=== PATIENT | female | born 1930 | race Caucasian/White ===

== ENCOUNTER 2016-11-15 06:42 | Inpatient (IN) | payer MEDICARE, MEDICAID ==
[~2016-11-15 06:42] MED LIST: Lactated Ringers 1,000 ML IV SCH; Lidocaine 1%/Sod Bicarbonate in NS 8.4% 1 ML Syringe PRN; Sodium Chloride 0.9% 10 ML Syringe FLUSH PRN
--- NOTE | 2016-11-15 07:55 | PCM.PREANE ---
Preanesthetic Assessment - Anesthesia/Transfusion/Family Hx Anesthesia History: Prior Anesthesia Without Reaction Family History of Anesthesia Reaction: No Transfusion History: Prior Transfusion Without Reaction - Review of Systems General: No Symptoms Pulmonary: No Symptoms Cardiovascular: Dyspnea on Exertion Gastrointestinal: No Symptoms Neurological: No Symptoms Other: Reports: Diabetes - Physical Assessment NPO Status Date: 11/14/16 NPO Status Time: 18:00 Pulse: 73 O2 Sat by Pulse Oximetry: 97 Respiratory Rate: 16 Blood Pressure: 122/56 Temperature: 36.9 C Height: 1.55 m Weight: 58.06 kg ASA Class: 3 Mental Status: Alert & Oriented x3 Airway Class: Mallampati = 1 Dentition: Reports: Dentures Thyro-Mental Finger Breadths: 3 Mouth Opening Finger Breadths: 3 ROM/Head Extension: Full Lungs: Clear to Auscultation, Normal Respiratory Effort Cardiovascular: Regular Rate, Regular Rhythm - Lab Values: Laboratory Last Values POC Glucose 127 mg/dL (83-110) H 11/15/16 07:29 MRSA (PCR) Negative 11/02/16 10:15 Blood Type Cancelled 11/10/16 15:02 Gel Antibody Screen Cancelled 11/10/16 15:02 Crossmatch See Detail 11/10/16 15:02 - Allergies Allergies/Adverse Reactions: Allergies Allergy/AdvReac Type Severity Reaction Status Date / Time glipizide Allergy Cannot Verified 11/12/16 14:01 Remember aspirin AdvReac anemia Verified 11/15/16 07:15 - Anesthesia Plan Pre-Op Medication Ordered: None - Acknowledgements Anesthesia Type Planned: Spinal Pt an Appropriate Candidate for the Planned Anesthesia: Yes Alternatives and Risks of Anesthesia Discussed w Pt/Guardian: Yes Pt/Guardian Understands and Agrees with Anesthesia Plan: Yes PreAnesthesia Questionnaire HEENT History: Reports: Cataract, Impaired Vision, Other (See Below) Other HEENT History: full dentures, glasses Cardiovascular History: Reports: High Cholesterol, Hypertension, SOB on Exertion , Other (See Below) Other Cardiovascular History: leg swelling Other Respiratory History: severe snoring Gastrointestinal History: Reports: Chronic Diarrhea, Colon Polyp, GERD Genitourinary History: Reports: Chronic Renal Insuffiency Other Genitourinary History: decreased GFR IOS 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 Musculoskeletal History: Reports: Osteoarthritis, Other (See Below) Other Musculoskeletal History: left hip pain Neurological History: Reports: None Psychiatric History: Reports: Depression Endocrine/Metabolic History: Reports: Diabetes, Type II, Hypothyroidism Hematologic History: Reports: Anemia, Iron Deficiency Other Hematologic History: hyperkalemia Immunologic History: Reports: None Oncologic (Cancer) History: Reports: None Dermatologic History: Reports: None - Infectious Disease History Infectious Disease History: Reports: Shingles - Past Surgical History Head Surgeries/Procedures: Reports: None HEENT Surgical History: Reports: Cataract Surgery, Other (See Below) Other HEENT Surgeries/Procedures: 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 GI Surgical History: Reports: Colonoscopy, EGD Neurological Surgical History: Reports: None Oncologic Surgical History: Reports: None Dermatological Surgical History: Reports: None - SUBSTANCE USE Smoking Status *Q: Never Smoker Tobacco Use Within Last Twelve Months: No Second Hand Smoke Exposure: No Days Per Week of Alcohol Use: 0 Number of Drinks Per Day: 0 Total Drinks Per Week: 0 Recreational Drug Use History: No - HOME MEDS Home Medications: Home Meds Calcium Carbonate/Vitamin D3 [Calcium 600 + Vit D 400 Softgl] 1 cap PO DAILY [History] Hydrochlorothiazide 25 mg PO DAILY 01/19/16 [History] Levothyroxine 75 mcg PO DAILY 01/19/16 [History] Lisinopril [Prinivil] 5 mg PO DAILY 01/19/16 [History] Omeprazole Magnesium [Prilosec Otc] 20 mg PO DAILY PRN 01/19/16 [History] Pravastatin Sodium [Pravastatin (Pravachol)] 40 mg PO DAILY 01/19/16 [History] metFORMIN [Glucophage] 1,000 mg PO BID 01/19/16 [History] Multivitamin [One Daily] 1 tab PO DAILY 11/12/16 [History] - CURRENT (IN HOUSE) MEDS Current Meds: Current Medications Lactated Ringer's (Ringers, Lactated) 1,000 mls @ 125 mls/hr IV ASDIRECTED RUPERT Stop: 11/15/16 23:00 Lidocaine/Sodium Bicarbonate (Buffered Lidocaine 1% In Ns 8.4%) 0.25 ml .XX ONETIME PRN PRN Reason: Prior to IV Start Stop: 11/15/16 18:00 Sodium Chloride (Saline Flush) 10 ml FLUSH ASDIRECTED PRN PRN Reason: Keep Vein Open Stop: 11/15/16 18:00 Discontinued Medications Bupivacaine HCl (Marcaine 0.25%) Confirm Administered Dose 30 ml .ROUTE .STK- MED ONE Stop: 11/15/16 07:15 Cefazolin Sodium (Ancef) Confirm Administered Dose 2 gm .ROUTE .STK-MED ONE Stop: 11/15/16 07:14 Morphine Sulfate 8 mg/Epinephrine HCl 0.3 mg/Cefuroxime Sodium 750 mg/Ketorolac Tromethamine 30 mg/Sodium Chloride 27.9 ml 0 mg .XX ONETIME ONE Stop: 11/15/16 07:31 Iodine (Iodine 2% Mild Tincture) Confirm Administered Dose 30 ml .ROUTE .STK- MED ONE Stop: 11/15/16 07:15 Tranexamic Acid (Cyklokapron) Confirm Administered Dose 1,000 mg .ROUTE .STK- MED ONE Stop: 11/15/16 07:14
[2016-11-15] MEDS ORDERED: Naloxone 0.4 MG/ML SDV IVPUSH PRN (08:53)
[2016-11-15] MEDS ORDERED: Bisacodyl 5 MG Tab PO PRN (08:53)
[2016-11-15] MEDS ORDERED: Morphine 2 MG/ML Syringe IVPUSH PRN (08:53)
[2016-11-15] MEDS ORDERED: Magnesium Hydroxide 400 MG/5 ML Susp 30 ML Cup PO PRN (08:53)
[2016-11-15] MEDS ORDERED: Ondansetron 4 MG/2 ML SDV IVPUSH PRN ×2 (08:53→10:30)
[2016-11-15] MEDS ORDERED: fentaNYL 100 MCG/2 ML SDV ONE (08:58)
[2016-11-15] MEDS ORDERED: Propofol 200 MG/20 ML SDV ONE (08:58)
[2016-11-15] MEDS ORDERED: Morphine PF 10 MG/10 ML SDV ONE (08:58)
[2016-11-15] MEDS ORDERED: ceFAZolin 1 GM Vial ONE (09:02)
[2016-11-15] MEDS ORDERED: Phenylephrine 1% 10 MG/ML SDV ONE (09:50)
[2016-11-15] MEDS: Bupivacaine 0.25% 30 ML SDV ONE ×2 (09:52→10:36)
[2016-11-15] MEDS: Iodine/Sodium Iodide 2% Tincture 30 ML Bottle ONE ×2 (09:53→10:28)
[2016-11-15] MEDS: Morphine 8 MG, EPINEPHrine 0.3 MG, Cefuroxime 750 MG, Ketorolac 30 MG, Sodium Chloride ... ONE ×10 (09:53→10:35)
[2016-11-15] MEDS: ceFAZolin 1 GM Vial ONE ×2 (09:53→10:30)
[2016-11-15] MEDS ORDERED: ePHEDrine 50 MG/ML SDV ONE (10:15)
[2016-11-15] MEDS ORDERED: Meperidine PF 50 MG/ML Syringe IVPUSH PRN (10:30)
[2016-11-15] MEDS ORDERED: diphenhydrAMINE 50 MG/ML SDV IVPUSH PRN (10:30)
--- NOTE | 2016-11-15 10:34 | PCM.OPNOTE ---
- General Post-Op/Procedure Note Date of Surgery/Procedure: 11/15/16 Operative Procedure(s): left total hip arthroplasty Pre Op Diagnosis: left hip osteoarthrosis Post-Op Diagnosis: Same Anesthesia Technique: Local, MAC, Spinal Primary Surgeon: Irwin Beavers Anesthesia Provider: Dejan Monroy Supervisor [employer]: Khushboo Borges Supervisor [employer] Processing: Alecia Galeana EBZane in mLs: 200 Condition: Good
[2016-11-15] MEDS ORDERED: Lactated Ringers 1,000 ML ONE (11:00)
--- NOTE | 2016-11-15 11:18 | PCM.POSTAN ---
POST ANESTHESIA ASSESSMENT - MENTAL STATUS Mental Status: Alert, Oriented - VITAL SIGNS Pulse Rate: 86 SaO2: 100 Resp Rate: 12 Blood Pressure: 103/58 Temperature: 36.2 C - RESPIRATORY Respiratory Status: Respiratory Rate WNL, Airway Patent, O2 Saturation Stable, Supplemental Oxygen - CARDIOVASCULAR CV Status: Pulse Rate WNL, Blood Pressure Stable - GASTROINTESTINAL GI Status: No Symptoms - PAIN Pain Score: 0 - POST OP HYDRATION Hydration Status: Adequate & Stable
--- NOTE | 2016-11-15 12:38 | CR ---
Pelvis and left hip: AP view of the pelvis was obtained as well as lateral view of the left hip. Comparison: Previous left hip CT exam was 10/02/15 is available. Recently placed left hip prosthesis is seen. Components are aligned. Underlying bony structures are intact. Degenerative change is noted within the lower lumbar spine. Fairly severe joint space narrowing is noted within the right hip. Soft tissue air is noted within the left hip. Bony structures are osteopenic. Impression: 1. Satisfactory appearance of recently placed left hip prosthesis. 2. Degenerative change within the right hip and lumbar spine is noted. Diagnostic code #3
--- NOTE | 2016-11-15 13:06 | PCM.CONS ---
H&P History of Present Illness - General Date of Service: 11/15/16 Admit Problem/Dx: Admission Diagnosis/Problem Admission Diagnosis/Problem Osteoarthritis of hip Source of Information: Patient, Old Records History Limitations: Reports: No Limitations - History of Present Illness Initial Comments - Free Text/Narative: Scarlett is a pleasant 86yo female seen postoperatively for total hip arthroplasty this morning with Dr. Beavers. She is doing well, no nausea or vomiting. Pain is under good control. She has no concerns as of yet. She has PMH of HTN, HLD, chronic diarrhea, GERK, CKD, OA, DM type 2, hypothyroid , anemia (iron deficiency, hx shingles, hx snoring (no formal dx of JIMENEZ). Hospitalist service is consulted for postoperative medical management. Onset of Symptoms: Reports: Gradual Duration of Symptoms: Reports: Chronic, Getting Worse Context: Reports: Activity/Exercise - Related Data Allergies/Adverse Reactions: Allergies Allergy/AdvReac Type Severity Reaction Status Date / Time glipizide Allergy Cannot Verified 11/12/16 14:01 Remember aspirin AdvReac anemia Verified 11/15/16 07:15 Home Medications: Home Meds Calcium Carbonate/Vitamin D3 [Calcium 600 + Vit D 400 Softgl] 1 cap PO DAILY [History] Hydrochlorothiazide 25 mg PO DAILY 01/19/16 [History] Levothyroxine 75 mcg PO DAILY 01/19/16 [History] Lisinopril [Prinivil] 5 mg PO DAILY 01/19/16 [History] Omeprazole Magnesium [Prilosec Otc] 20 mg PO DAILY PRN 01/19/16 [History] Pravastatin Sodium [Pravastatin (Pravachol)] 40 mg PO DAILY 01/19/16 [History] metFORMIN [Glucophage] 1,000 mg PO BID 01/19/16 [History] Multivitamin [One Daily] 1 tab PO DAILY 11/12/16 [History] Past Medical History HEENT History: Reports: Cataract, Impaired Vision, Other (See Below) Other HEENT History: full dentures, glasses Cardiovascular History: Reports: High Cholesterol, Hypertension, SOB on Exertion , Other (See Below) Other Cardiovascular History: leg swelling Other Respiratory History: severe snoring Gastrointestinal History: Reports: Chronic Diarrhea, Colon Polyp, GERD Genitourinary History: Reports: Chronic Renal Insuffiency Other Genitourinary History: decreased GFR 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 Musculoskeletal History: Reports: Osteoarthritis, Other (See Below) Other Musculoskeletal History: left hip pain Neurological History: Reports: None Psychiatric History: Reports: Depression Endocrine/Metabolic History: Reports: Diabetes, Type II, Hypothyroidism Hematologic History: Reports: Anemia, Iron Deficiency Other Hematologic History: hyperkalemia Immunologic History: Reports: None Oncologic (Cancer) History: Reports: None Dermatologic History: Reports: None - Infectious Disease History Infectious Disease History: Reports: Shingles - Past Surgical History Head Surgeries/Procedures: Reports: None HEENT Surgical History: Reports: Cataract Surgery, Other (See Below) Other HEENT Surgeries/Procedures: 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 GI Surgical History: Reports: Colonoscopy, EGD Neurological Surgical History: Reports: None Oncologic Surgical History: Reports: None Dermatological Surgical History: Reports: None Social & Family History - Tobacco Use Smoking Status *Q: Never Smoker Used Tobacco, but Quit: No Second Hand Smoke Exposure: No - Caffeine Use Caffeine Use: Reports: None - Alcohol Use Days Per Week of Alcohol Use: 0 Number of Drinks Per Day: 0 Total Drinks Per Week: 0 - Recreational Drug Use Recreational Drug Use: No H&P Review of Systems - Review of Systems: Review Of Systems: See Below General: Reports: No Symptoms HEENT: Reports: No Symptoms Pulmonary: Reports: No Symptoms. Denies: Shortness of Breath, Pleuritic Chest Pain, Cough Cardiovascular: Reports: No Symptoms. Denies: Chest Pain, Palpitations, Dyspnea on Exertion Gastrointestinal: Reports: No Symptoms. Denies: Abdominal Pain Genitourinary: Reports: No Symptoms, Other (greene cath in place) Musculoskeletal: Reports: No Symptoms, Leg Pain (minimal as spinal still in effect) Psychiatric: Reports: No Symptoms Neurological: Reports: No Symptoms Exam - Exam Exam: See Below - Vital Signs Vital Signs: Last Vital Signs Temp 98.1 F 11/15/16 12:00 Pulse 86 11/15/16 11:18 Resp 18 11/15/16 12:00 BP 125/66 11/15/16 12:00 Pulse Ox 96 11/15/16 12:00 Weight: 128 lb - Exam Quality Assessment: Supplemental Oxygen, Urinary Catheter General: Alert, Oriented, Cooperative HEENT: Conjunctiva Clear, EOMI, Hearing Intact, Mucosa Moist & [place], Pupils Equal, Pupils Reactive Neck: Supple, Trachea Midline Lungs: Clear to Auscultation, Normal Respiratory Effort, Decreased Breath Sounds (bases) Cardiovascular: Regular Rate, Regular Rhythm GI/Abdominal Exam: Normal Bowel Sounds, Soft, Non-Tender, No Organomegaly (Female) Exam: Deferred Rectal (Female) Exam: Deferred Extremities: Normal Capillary Refill, Other (SCD's/teds bilat; dressing CDI to hip) Peripheral Pulses: 2+: Dorsalis Pedis (L), Dorsalis Pedis (R) Skin: Warm, Dry Neurological: Cranial Nerves Intact Neuro Extensive - Mental Status: Alert, Oriented x3, Normal Mood/Affect, Normal Cognition, Memory Intact Neuro Extensive - Motor, Sensory, Reflexes: CN II-XII Intact Psychiatric: Alert, Normal Affect, Normal Mood - Patient Data Lab Results Last 24 hrs: Laboratory Results - last 24 hr 11/15/16 11/15/16 Range/Units 07:29 07:37 POC Glucose 127 H (83-110) mg/dL Blood Type O POSITIVE Gel Antibody Screen Negative Consult PN Assessment/Plan POD#: 0 Procedures: Procedures 3D RENDER W/INTRP POSTPROCES (10/02/15) BLOOD TRANSFUSION SERVICE (11/10/16) BLOOD TYPING SEROLOGIC ABO (11/10/16) BLOOD TYPING SEROLOGIC RH(D) (11/10/16) COLONOSCOPY AND BIOPSY (01/19/16) COLONOSCOPY W/LESION REMOVAL (02/03/16) COLONOSCOPY W/RESECTION (02/03/16) COMPATIBILITY TEST ANTIGLOB (11/10/16) CT LOWER EXTREMITY W/O DYE (10/02/15) EGD BIOPSY SINGLE/MULTIPLE (01/19/16) RBC ANTIBODY SCREEN (11/10/16) ROUTINE VENIPUNCTURE (11/10/16) THER/PROPH/DIAG INJ IV PUSH (11/10/16) TISSUE EXAM BY PATHOLOGIST (02/03/16) (1) S/P total hip arthroplasty SNOMED Code(s): 867983070361, 906658270056 Code(s): Z96.649 - PRESENCE OF UNSPECIFIED ARTIFICIAL HIP JOINT Priority: High Current Visit: Yes Qualifiers: Laterality: left Qualified Code(s): Z96.642 - Presence of left artificial hip joint (2) Osteoarthritis SNOMED Code(s): 558270056 Code(s): M19.90 - UNSPECIFIED OSTEOARTHRITIS, UNSPECIFIED SITE Priority: High Current Visit: Yes Qualifiers: Osteoarthritis location: hip Osteoarthritis type: primary Laterality: left Qualified Code(s): M16.12 - Unilateral primary osteoarthritis, left hip (3) Type 2 diabetes mellitus SNOMED Code(s): 88664648 Code(s): E11.9 - TYPE 2 DIABETES MELLITUS WITHOUT COMPLICATIONS Priority: Medium Current Visit: Yes Qualifiers: Diabetes mellitus complication status: without complication Diabetes mellitus residential insulin use: without termite control service representative use Qualified Code(s): E11.9 - Type 2 diabetes mellitus without complications (4) HTN (hypertension) SNOMED Code(s): 97513888 Code(s): I10 - ESSENTIAL (PRIMARY) HYPERTENSION Priority: Medium Current Visit: No Qualifiers: Hypertension type: essential hypertension Qualified Code(s): I10 - Essential (primary) hypertension (5) HLD (hyperlipidemia) SNOMED Code(s): 43496697 Code(s): E78.5 - HYPERLIPIDEMIA, UNSPECIFIED Priority: Medium Current Visit: No Qualifiers: Hyperlipidemia type: unspecified Qualified Code(s): E78.5 - Hyperlipidemia , unspecified (6) Hypothyroid SNOMED Code(s): 84915061 Code(s): E03.9 - HYPOTHYROIDISM, UNSPECIFIED Priority: Medium Current Visit: No Qualifiers: Hypothyroidism type: unspecified Qualified Code(s): E03.9 - Hypothyroidism , unspecified (7) Anemia SNOMED Code(s): 179829929 Code(s): D64.9 - ANEMIA, UNSPECIFIED Priority: Medium Current Visit: No Qualifiers: Anemia type: iron deficiency (8) GERD (gastroesophageal reflux disease) SNOMED Code(s): 403528310 Code(s): K21.9 - GASTRO-ESOPHAGEAL REFLUX DISEASE WITHOUT ESOPHAGITIS Priority: Medium Current Visit: No Qualifiers: Esophagitis presence: esophagitis presence not specified Qualified Code(s) : K21.9 - Gastro-esophageal reflux disease without esophagitis (9) CKD (chronic kidney disease) SNOMED Code(s): 587189255 Code(s): N18.9 - CHRONIC KIDNEY DISEASE, UNSPECIFIED Priority: Medium Current Visit: No Qualifiers: Chronic kidney disease stage: unspecified stage Qualified Code(s): N18.9 - Chronic kidney disease, unspecified Problem List Initiated/Reviewed/Updated: Yes My Orders Last 24 Hours: My Active Orders 11/16/16 09:00 Hydrochlorothiazide 25 mg PO DAILY Levothyroxine 75 mcg PO DAILY Lisinopril [Prinivil] 5 mg PO DAILY Pravastatin Sodium 40 mg PO DAILY metFORMIN [Glucophage] 1,000 mg PO BID Plan: I/P: S/P Lt DUSTY d/t Osteoarthritis -POD #[address] Beavers -Pain management and DVT prophylax per primary team -PT/OT -RT/IS -10.6 preop hgb (chart review, last reading I was able to find was on 08/17/16 , Hematology documents hgb ranging 9.9-9.3 in the last year) Chronic conditions:- cont home meds HTN- stable HLD CKD- stage 3, stable Hypothyroidism- TSH normal on 04/24/16 at 3.20 DM 2- cont metformin, start tomorrow am; SSI to cover during hospital stay also ; A1C of 7.6 on 04/23/16 per PCP chart review/records review GERD- GI prophylax Anemia- as above, will follow hgb--chart review shows adequate workup by PCP on 08/17/16 documentation, referred to hematology at that time also. Other: CM/SW for assist with DC planning Patient is Full Code Status Thank you for allowing us to assist you with management of this patient. Please do not hesitate to contact us with questions or concerns.
[2016-11-15] MEDS: ceFAZolin 2 GM in Premix Bag 1 BAG IV SCH (15:28)
[2016-11-15] MEDS: Insulin Aspart 100 Units/ML 3 ML Pen SUBCUT SCH ×3 (16:14→21:57)
[2016-11-15] MEDS: Docusate Sodium 100 MG Cap PO SCH (20:54)
[2016-11-15] MEDS: Acetaminophen/HYDROcodone 325-5 MG Tab PO PRN (20:55)
[2016-11-15] MEDS: Simvastatin 20 MG Tab PO SCH (20:55)
[2016-11-15] MEDS ORDERED: Famotidine 20 MG Tab PO SCH (21:00)
[2016-11-16] MEDS: ceFAZolin 2 GM in Premix Bag 1 BAG IV SCH ×2 (02:19→10:40)
[2016-11-16] MEDS: Acetaminophen/HYDROcodone 325-5 MG Tab PO PRN ×4 (02:19→15:28)
[2016-11-16] MEDS: Levothyroxine 75 MCG Tab PO SCH (06:13)
[2016-11-16] MEDS: Multivitamins,Therapeutic Tab PO SCH (07:52)
[2016-11-16] MEDS: Insulin Aspart 100 Units/ML 3 ML Pen SUBCUT SCH ×4 (07:52→21:56)
[2016-11-16] MEDS: metFORMIN 500 MG Tab PO SCH ×2 (07:52→16:42)
--- NOTE | 2016-11-16 08:37 | PCM48HPAN ---
Post Anesthesia Note - EVALUATION WITHIN 48HRS OF ANESTHETIC Vital Signs in Normal Range: Yes Patient Participated in Evaluation: Yes Respiratory Function Stable: Yes Airway Patent: Yes Cardiovascular Function Stable: Yes Hydration Status Stable: Yes Pain Control Satisfactory: Yes Nausea and Vomiting Control Satisfactory: Yes Mental Status Recovered: Yes - COMMENTS/OBSERVATIONS Free Text/Narrative:: Patient denied any headache, residual numbness/tingling to lower extremities, or back pain.
[2016-11-16] MEDS: Famotidine 20 MG Tab PO SCH (10:10)
[2016-11-16] MEDS: Lisinopril 5 MG Tab PO SCH (10:10)
[2016-11-16] MEDS: Hydrochlorothiazide 25 MG Tab PO SCH (10:11)
[2016-11-16] MEDS: Aspirin 325 MG Tab.EC PO SCH ×2 (10:11→20:10)
[2016-11-16] MEDS: Docusate Sodium 100 MG Cap PO SCH ×2 (10:11→20:11)
--- NOTE | 2016-11-16 11:05 | PCM.CONSN ---
- General Info Date of Service: 11/16/16 Admission Dx/Problem (Free Text): Admission Diagnosis/Problem Admission Diagnosis/Problem Osteoarthritis of hip POD #[address] Beavers, doing well. Denies c/o pain to her hip today. Sitting up in chair resting. Denies nausea, resolved from yesterday afternoon. VSS. Hgb 10.7 Plans for Rehab stay at [facility]. Functional Status: Reports: Pain Controlled, Tolerating Diet, Ambulating, Urinating, Incentive Spirometry. Denies: New Symptoms - Review of Systems General: Reports: No Symptoms HEENT: Reports: No Symptoms Pulmonary: Reports: No Symptoms Cardiovascular: Reports: No Symptoms Gastrointestinal: Reports: No Symptoms Genitourinary: Reports: No Symptoms Musculoskeletal: Reports: Leg Pain (minimal to hip) Skin: Reports: No Symptoms Neurological: Reports: No Symptoms Psychiatric: Reports: No Symptoms - Patient Data Vitals - Most Recent: Last Vital Signs Temp 97.5 F 11/16/16 07:28 Pulse 85 11/16/16 07:28 Resp 14 11/16/16 07:28 BP 106/58 L 11/16/16 10:10 Pulse Ox 99 11/16/16 07:28 Weight - Most Recent: 132 lb 6.4 oz I&O - Last 24 Hours: Intake & Output 11/15/16 11/16/16 11/16/16 22:59 06:59 14:59 Intake Total 1730 450 Output Total 1800 700 Balance -70 -250 Lab Results Last 24 Hours: Laboratory Results - last 24 hr 11/15/16 11/15/16 11/15/16 Range/Units 16:03 16:13 21:30 WBC (3.98-10.04) K/mm3 RBC (3.98-5.22) M/mm3 Hgb (11.2-15.7) gm/L Hct (34.1-44.9) % MCV (79.4-94.8) fl MCH (25.6-32.2) pg MCHC (32.2-35.5) g/dl RDW Std Deviation (36.4-46.3) fL Plt Count (182-369) K/mm3 MPV (9.4-12.3) fl Neut % (Auto) (34.0-71.1) % Lymph % (Auto) (19.3-51.7) % Branch % (Auto) (4.7-12.5) % Eos % (Auto) (0.7-5.8) Baso % (Auto) (0.1-1.2) % Neut # (Auto) (1.56-6.13) K/mm3 Lymph # (Auto) (1.18-3.74) K/mm3 Branch # (Auto) (0.24-0.36) K/mm3 Eos # (Auto) (0.04-0.36) K/mm3 Baso # (Auto) (0.01-0.08) K/mm3 Sodium (136-145) mEq/L Potassium (3.5-5.1) mEq/L Chloride (98-107) mEq/L Carbon Dioxide (21-32) mEq/L Anion Gap (5-15) BUN (7-18) mg/dL Creatinine (0.55-1.02) mg/dL Est Cr Clr Drug Dosing mL/min Estimated GFR (MDRD) (>60) mL/min BUN/Creatinine Ratio (14-18) Glucose (83-115) mg/dL POC Glucose 132 H 135 H 252 H (83-110) mg/dL Calcium (8.5-10.1) mg/dL Total Bilirubin (0.2-1.0) mg/dL AST (15-37) U/L ALT (14-59) U/L Alkaline Phosphatase (46-116) U/L Total Protein (6.4-8.2) g/dl Albumin (3.4-5.0) g/dl Globulin gm/dL Albumin/Globulin Ratio (1-2) 11/15/16 11/16/16 11/16/16 Range/Units 21:55 05:40 05:40 WBC 8.60 (3.98-10.04) K/mm3 RBC 3.51 L (3.98-5.22) M/mm3 Hgb 10.7 L (11.2-15.7) gm/L Hct 32.6 L (34.1-44.9) % MCV 92.9 (79.4-94.8) fl MCH 30.5 (25.6-32.2) pg MCHC 32.8 (32.2-35.5) g/dl RDW Std Deviation 42.0 (36.4-46.3) fL Plt Count 255 (182-369) K/mm3 MPV 9.3 L (9.4-12.3) fl Neut % (Auto) 71.7 H (34.0-71.1) % Lymph % (Auto) 19.5 (19.3-51.7) % Branch % (Auto) 7.7 (4.7-12.5) % Eos % (Auto) 0.8 (0.7-5.8) Baso % (Auto) 0.2 (0.1-1.2) % Neut # (Auto) 6.16 H (1.56-6.13) K/mm3 Lymph # (Auto) 1.68 (1.18-3.74) K/mm3 Branch # (Auto) 0.66 H (0.24-0.36) K/mm3 Eos # (Auto) 0.07 (0.04-0.36) K/mm3 Baso # (Auto) 0.02 (0.01-0.08) K/mm3 Sodium 140 (136-145) mEq/L Potassium 4.8 (3.5-5.1) mEq/L Chloride 106 (98-107) mEq/L Carbon Dioxide 29 (21-32) mEq/L Anion Gap 9.8 (5-15) BUN 41 H (7-18) mg/dL Creatinine 1.6 H (0.55-1.02) mg/dL Est Cr Clr Drug Dosing 19.75 mL/min Estimated GFR (MDRD) 31 (>60) mL/min BUN/Creatinine Ratio 25.6 H (14-18) Glucose 174 H (83-115) mg/dL POC Glucose 262 H (83-110) mg/dL Calcium 8.5 (8.5-10.1) mg/dL Total Bilirubin 0.4 (0.2-1.0) mg/dL AST 24 (15-37) U/L ALT 18 (14-59) U/L Alkaline Phosphatase 57 (46-116) U/L Total Protein 5.5 L (6.4-8.2) g/dl Albumin 2.9 L (3.4-5.0) g/dl Globulin 2.6 gm/dL Albumin/Globulin Ratio 1.1 (1-2) 11/16/16 Range/Units 05:41 WBC (3.98-10.04) K/mm3 RBC (3.98-5.22) M/mm3 Hgb (11.2-15.7) gm/L Hct (34.1-44.9) % MCV (79.4-94.8) fl MCH (25.6-32.2) pg MCHC (32.2-35.5) g/dl RDW Std Deviation (36.4-46.3) fL Plt Count (182-369) K/mm3 MPV (9.4-12.3) fl Neut % (Auto) (34.0-71.1) % Lymph % (Auto) (19.3-51.7) % Branch % (Auto) (4.7-12.5) % Eos % (Auto) (0.7-5.8) Baso % (Auto) (0.1-1.2) % Neut # (Auto) (1.56-6.13) K/mm3 Lymph # (Auto) (1.18-3.74) K/mm3 Branch # (Auto) (0.24-0.36) K/mm3 Eos # (Auto) (0.04-0.36) K/mm3 Baso # (Auto) (0.01-0.08) K/mm3 Sodium (136-145) mEq/L Potassium (3.5-5.1) mEq/L Chloride (98-107) mEq/L Carbon Dioxide (21-32) mEq/L Anion Gap (5-15) BUN (7-18) mg/dL Creatinine (0.55-1.02) mg/dL Est Cr Clr Drug Dosing mL/min Estimated GFR (MDRD) (>60) mL/min BUN/Creatinine Ratio (14-18) Glucose (83-115) mg/dL POC Glucose 162 H (83-110) mg/dL Calcium (8.5-10.1) mg/dL Total Bilirubin (0.2-1.0) mg/dL AST (15-37) U/L ALT (14-59) U/L Alkaline Phosphatase (46-116) U/L Total Protein (6.4-8.2) g/dl Albumin (3.4-5.0) g/dl Globulin gm/dL Albumin/Globulin Ratio (1-2) Med Orders - Current: Current Medications Hydrocodone Bitart/Acetaminophen ([place] 325-5 Mg) 1 - 2 tab PO Q4H PRN PRN Reason: Pain Last Admin: 11/16/16 10:51 Dose: 2 tab Aspirin (Ecotrin) 325 mg PO BID [facility] Last Admin: 11/16/16 10:11 Dose: 325 mg Bisacodyl (Dulcolax) 5 mg PO DAILY PRN PRN Reason: Constipation Docusate Sodium (Colace) 100 mg PO BID [facility] Last Admin: 11/16/16 10:11 Dose: 100 mg Famotidine (Pepcid) 20 mg PO DAILY [facility] Last Admin: 11/16/16 10:10 Dose: 20 mg Hydrochlorothiazide (Hydrochlorothiazide) 25 mg PO DAILY [facility] Last Admin: 11/16/16 10:11 Dose: 25 mg Insulin Aspart (Novolog) 0 unit SUBCUT QIDACANDBED [facility] PRN Reason: Protocol Last Admin: 11/16/16 07:52 Dose: 1 units Levothyroxine Sodium (Levothyroxine) 75 mcg PO ACBREAKFAST [facility] Last Admin: 11/16/16 06:13 Dose: 75 mcg Lisinopril (Prinivil) 5 mg PO DAILY [facility] Last Admin: 11/16/16 10:10 Dose: 5 mg Magnesium Hydroxide (Milk Of Magnesia) 30 ml PO BID PRN PRN Reason: Constipation Metformin HCl (Glucophage) 1,000 mg PO BIDMEALS [facility] Last Admin: 11/16/16 07:52 Dose: 1,000 mg Morphine Sulfate (Morphine) 2 mg IVPUSH Q2H PRN PRN Reason: Breakthrough Pain Multivitamins (Thera) 1 each PO WITHBREAKFAST [facility] Last Admin: 11/16/16 07:52 Dose: 1 each Naloxone HCl (Narcan) 0.1 mg IVPUSH Q5M PRN PRN Reason: Oversedation Ondansetron HCl (Zofran) 4 mg IVPUSH Q6H PRN PRN Reason: Nausea/Vomiting Last Admin: 11/15/16 16:55 Dose: 4 mg Senna (Senna) 8.6 mg PO BID PRN PRN Reason: Constipation Simvastatin (Zocor) 20 mg PO BEDTIME [facility] Last Admin: 11/15/16 20:55 Dose: 20 mg Discontinued Medications Bupivacaine HCl (Marcaine 0.25%) Confirm Administered Dose 30 ml .ROUTE .STK- MED ONE Stop: 11/15/16 07:15 Last Admin: 11/15/16 10:36 Dose: 30 ml Cefazolin Sodium (Ancef) Confirm Administered Dose 2 gm .ROUTE .STK-MED ONE Stop: 11/15/16 07:14 Last Admin: 11/15/16 10:30 Dose: 2 gm Cefazolin Sodium (Ancef) Confirm Administered Dose 2 gm .ROUTE .STK-MED ONE Stop: 11/15/16 09:03 Morphine Sulfate 8 mg/Epinephrine HCl 0.3 mg/Cefuroxime Sodium 750 mg/Ketorolac Tromethamine 30 mg/Sodium Chloride 27.9 ml 0 mg .XX ONETIME ONE Stop: 11/15/16 07:31 Last Admin: 11/15/16 10:35 Dose: 788.3 mg Diphenhydramine HCl (Benadryl) 25 mg IVPUSH Q6H PRN PRN Reason: Pruritis Stop: 11/15/16 18:00 Ephedrine Sulfate (Ephedrine Sulfate) Confirm Administered Dose 50 mg .ROUTE .STK-MED ONE Stop: 11/15/16 10:16 Famotidine (Pepcid) 20 mg PO Q12H [facility] Last Admin: 11/15/16 20:55 Dose: 20 mg Fentanyl (Sublimaze) Confirm Administered Dose 100 mcg .ROUTE .STK-MED ONE Stop: 11/15/16 08:59 Lactated Ringer's (Ringers, Lactated) 1,000 mls @ 125 mls/hr IV ASDIRECTED [facility] Stop: 11/15/16 23:00 Last Admin: 11/15/16 07:30 Dose: 125 mls/hr Cefazolin Sodium/Dextrose 2 gm (/ Premix) 50 mls @ 100 mls/hr IV Q8H [facility] Stop: 11/16/16 08:29 Last Admin: 11/16/16 10:40 Dose: 100 mls/hr Lactated Ringer's (Ringers, Lactated) Confirm Administered Dose 1,000 mls @ as directed .ROUTE .STK-MED ONE Stop: 11/15/16 11:01 Iodine (Iodine 2% Mild Tincture) Confirm Administered Dose 30 ml .ROUTE .STK- MED ONE Stop: 11/15/16 07:15 Last Admin: 11/15/16 10:28 Dose: 18 ml Lidocaine/Sodium Bicarbonate (Buffered Lidocaine 1% In Ns 8.4%) 0.25 ml .XX ONETIME PRN PRN Reason: Prior to IV Start Stop: 11/15/16 18:00 Last Admin: 11/15/16 07:30 Dose: 0.25 ml Meperidine HCl (Demerol) 12.5 mg IVPUSH ONETIME PRN PRN Reason: Shivering Stop: 11/15/16 18:00 Morphine Sulfate (Duramorph Pf) Confirm Administered Dose 10 mg .ROUTE .STK-MED ONE Stop: 11/15/16 08:59 Ondansetron HCl (Zofran) 4 mg IVPUSH ONETIME PRN PRN Reason: Nausea/Vomiting Stop: 11/15/16 18:00 Last Admin: 11/15/16 11:36 Dose: 4 mg Phenylephrine HCl (Enrike-Synephrine) Confirm Administered Dose 10 mg .ROUTE .STK- MED ONE Stop: 11/15/16 09:51 Propofol (Diprivan 20 Ml) Confirm Administered Dose 600 mg .ROUTE .STK-MED ONE Stop: 11/15/16 08:59 Sodium Chloride (Saline Flush) 10 ml FLUSH ASDIRECTED PRN PRN Reason: Keep Vein Open Stop: 11/15/16 18:00 Tranexamic Acid (Cyklokapron) Confirm Administered Dose 1,000 mg .ROUTE .STK- MED ONE Stop: 11/15/16 07:14 Last Admin: 11/15/16 10:45 Dose: 1,000 mg - Exam Quality Assessment: DVT Prophylaxis General: Alert, Oriented, Cooperative, No Acute Distress, Other (pleasant, talkative this morning) HEENT: Pupils Equal, EOMI, Mucous Membr. Moist/[place] Neck: Supple Lungs: Clear to Auscultation, Normal Respiratory Effort Cardiovascular: Regular Rate, Regular Rhythm GI/Abdominal Exam: Normal Bowel Sounds, Soft, Non-Tender, No Organomegaly (Female) Exam: Deferred Extremities: Other (Dressing CDI, hip is soft. CMS is + distally) Peripheral Pulses: 1+: Dorsalis Pedis (L), Dorsalis Pedis (R) Wound/Incisions: Dressing Dry and Intact Neurological: No New Focal Deficit Psy/Mental Status: Alert, Normal Affect, Normal Mood Consult PN Assessment/Plan POD#: 1 Procedures: Procedures 3D RENDER W/INTRP POSTPROCES (10/02/15) BLOOD TRANSFUSION SERVICE (11/10/16) BLOOD TYPING SEROLOGIC ABO (11/10/16) BLOOD TYPING SEROLOGIC RH(D) (11/10/16) COLONOSCOPY AND BIOPSY (01/19/16) COLONOSCOPY W/LESION REMOVAL (02/03/16) COLONOSCOPY W/RESECTION (02/03/16) COMPATIBILITY TEST ANTIGLOB (11/10/16) CT LOWER EXTREMITY W/O DYE (10/02/15) EGD BIOPSY SINGLE/MULTIPLE (01/19/16) RBC ANTIBODY SCREEN (11/10/16) ROUTINE VENIPUNCTURE (11/10/16) THER/PROPH/DIAG INJ IV PUSH (11/10/16) TISSUE EXAM BY PATHOLOGIST (02/03/16) (1) S/P total hip arthroplasty SNOMED Code(s): 132675605672, 009005701403 Code(s): Z96.649 - PRESENCE OF UNSPECIFIED ARTIFICIAL HIP JOINT Priority: High Current Visit: Yes Qualifiers: Laterality: left Qualified Code(s): Z96.642 - Presence of left artificial hip joint (2) Osteoarthritis SNOMED Code(s): 109418332 Code(s): M19.90 - UNSPECIFIED OSTEOARTHRITIS, UNSPECIFIED SITE Priority: High Current Visit: Yes Qualifiers: Osteoarthritis location: hip Osteoarthritis type: primary Laterality: left Qualified Code(s): M16.12 - Unilateral primary osteoarthritis, left hip (3) Type 2 diabetes mellitus SNOMED Code(s): 70778085 Code(s): E11.9 - TYPE 2 DIABETES MELLITUS WITHOUT COMPLICATIONS Priority: Medium Current Visit: Yes Qualifiers: Diabetes mellitus complication status: without complication Diabetes mellitus terminal worker insulin use: without terminal worker use Qualified Code(s): E11.9 - Type 2 diabetes mellitus without complications (4) HTN (hypertension) SNOMED Code(s): 13305319 Code(s): I10 - ESSENTIAL (PRIMARY) HYPERTENSION Priority: Medium Current Visit: No Qualifiers: Hypertension type: essential hypertension Qualified Code(s): I10 - Essential (primary) hypertension (5) HLD (hyperlipidemia) SNOMED Code(s): 60047236 Code(s): E78.5 - HYPERLIPIDEMIA, UNSPECIFIED Priority: Medium Current Visit: No Qualifiers: Hyperlipidemia type: unspecified Qualified Code(s): E78.5 - Hyperlipidemia , unspecified (6) Hypothyroid SNOMED Code(s): 24943607 Code(s): E03.9 - HYPOTHYROIDISM, UNSPECIFIED Priority: Medium Current Visit: No Qualifiers: Hypothyroidism type: unspecified Qualified Code(s): E03.9 - Hypothyroidism , unspecified (7) Anemia SNOMED Code(s): 832365821 Code(s): D64.9 - ANEMIA, UNSPECIFIED Priority: Medium Current Visit: No Qualifiers: Anemia type: iron deficiency (8) GERD (gastroesophageal reflux disease) SNOMED Code(s): 975568369 Code(s): K21.9 - GASTRO-ESOPHAGEAL REFLUX DISEASE WITHOUT ESOPHAGITIS Priority: Medium Current Visit: No Qualifiers: Esophagitis presence: esophagitis presence not specified Qualified Code(s) : K21.9 - Gastro-esophageal reflux disease without esophagitis (9) CKD (chronic kidney disease) SNOMED Code(s): 784835472 Code(s): N18.9 - CHRONIC KIDNEY DISEASE, UNSPECIFIED Priority: Medium Current Visit: No Qualifiers: Chronic kidney disease stage: unspecified stage Qualified Code(s): N18.9 - Chronic kidney disease, unspecified Problem List Initiated/Reviewed/Updated: Yes My Orders Last 24 Hours: My Active Orders 11/15/16 13:22 Accu Check [Blood Glucose Check, Bedside] [RC] QIDACANDBED 11/15/16 13:30 Insulin Aspart [NovoLOG] See Protocol SUBCUT QIDACANDBED 11/15/16 21:00 Simvastatin [Zocor] 20 mg PO BEDTIME 11/16/16 06:00 Levothyroxine 75 mcg PO ACBREAKFAST 11/16/16 07:00 metFORMIN [Glucophage] 1,000 mg PO BIDMEALS 11/16/16 09:00 Hydrochlorothiazide 25 mg PO DAILY Lisinopril [Prinivil] 5 mg PO DAILY 11/16/16 10:56 Blood Glucose Check, Bedside [RC] QIDACANDBED 11/16/16 Lunch Consistent Carbohydrate Diet [DIET] 11/17/16 05:11 BASIC METABOLIC PANEL,BMP [CHEM] AM CBC WITH AUTO DIFF [HEME] AM 11/18/16 05:11 BASIC METABOLIC PANEL,BMP [CHEM] AM CBC WITH AUTO DIFF [HEME] AM Plan: I/P: S/P Lt DUSTY d/t Osteoarthritis -POD #[address] Beavers -Pain management and DVT prophylax per primary team -PT/OT -RT/IS -10.6 preop hgb (chart review, last reading I was able to find was on 08/17/16 , Hematology documents hgb ranging 9.9-9.3 in the last year) -today 10.7 Chronic conditions:- cont home meds HTN- stable HLD CKD- stage 3, stable--creat 1.6 today Hypothyroidism- TSH normal on 04/24/16 at 3.20 DM 2- cont metformin, start tomorrow am; SSI to cover during hospital stay also ; A1C of 7.6 on 04/23/16 per PCP chart review/records review GERD- GI prophylax Anemia- as above, will follow hgb--chart review shows adequate workup by PCP on 08/17/16 documentation, referred to hematology at that time also. Other: CM/SW for assist with DC planning--Patient and care team planning for SNF rehab stay, plan for DC of this week to [facility]. Patient is doing well thus far. Patient is Full Code Status
--- NOTE | 2016-11-16 15:14 | PCM.SURGPN ---
- General Info Date of Service: 11/16/16 POD#: 1 Functional Status: Reports: Pain Controlled, Tolerating Diet, Ambulating, Urinating, Other (The pt reports the pain medication causes fatigue, but she is "otherwise well".) - Patient Data Vitals - Most Recent: Last Vital Signs Temp 97.5 F 11/16/16 11:56 Pulse 78 11/16/16 11:56 Resp 12 11/16/16 11:56 BP 108/47 L 11/16/16 11:56 Pulse Ox 96 11/16/16 11:56 Weight - Most Recent: 132 lb 6.4 oz I&O - Last 24 Hours: Intake & Output 11/16/16 11/16/16 11/16/16 06:59 14:59 22:59 Intake Total 450 720 Output Total 700 Balance -250 720 Lab Results Last 24 Hrs: Laboratory Results - last 24 hr 11/15/16 11/15/16 11/15/16 Range/Units 16:03 16:13 21:30 WBC (3.98-10.04) K/mm3 RBC (3.98-5.22) M/mm3 Hgb (11.2-15.7) gm/L Hct (34.1-44.9) % MCV (79.4-94.8) fl MCH (25.6-32.2) pg MCHC (32.2-35.5) g/dl RDW Std Deviation (36.4-46.3) fL Plt Count (182-369) K/mm3 MPV (9.4-12.3) fl Neut % (Auto) (34.0-71.1) % Lymph % (Auto) (19.3-51.7) % [place] % (Auto) (4.7-12.5) % Eos % (Auto) (0.7-5.8) Baso % (Auto) (0.1-1.2) % Neut # (Auto) (1.56-6.13) K/mm3 Lymph # (Auto) (1.18-3.74) K/mm3 Fre[place] # (Auto) (0.24-0.36) K/mm3 Eos # (Auto) (0.04-0.36) K/mm3 Baso # (Auto) (0.01-0.08) K/mm3 Sodium (136-145) mEq/L Potassium (3.5-5.1) mEq/L Chloride (98-107) mEq/L Carbon Dioxide (21-32) mEq/L Anion Gap (5-15) BUN (7-18) mg/dL Creatinine (0.55-1.02) mg/dL Est Cr Clr Drug Dosing mL/min Estimated GFR (MDRD) (>60) mL/min BUN/Creatinine Ratio (14-18) Glucose (83-115) mg/dL POC Glucose 132 H 135 H 252 H (83-110) mg/dL Calcium (8.5-10.1) mg/dL Total Bilirubin (0.2-1.0) mg/dL AST (15-37) U/L ALT (14-59) U/L Alkaline Phosphatase (46-116) U/L Total Protein (6.4-8.2) g/dl Albumin (3.4-5.0) g/dl Globulin gm/dL Albumin/Globulin Ratio (1-2) 11/15/16 11/16/16 11/16/16 Range/Units 21:55 05:40 05:40 WBC 8.60 (3.98-10.04) K/mm3 RBC 3.51 L (3.98-5.22) M/mm3 Hgb 10.7 L (11.2-15.7) gm/L Hct 32.6 L (34.1-44.9) % MCV 92.9 (79.4-94.8) fl MCH 30.5 (25.6-32.2) pg MCHC 32.8 (32.2-35.5) g/dl RDW Std Deviation 42.0 (36.4-46.3) fL Plt Count 255 (182-369) K/mm3 MPV 9.3 L (9.4-12.3) fl Neut % (Auto) 71.7 H (34.0-71.1) % Lymph % (Auto) 19.5 (19.3-51.7) % [place] % (Auto) 7.7 (4.7-12.5) % Eos % (Auto) 0.8 (0.7-5.8) Baso % (Auto) 0.2 (0.1-1.2) % Neut # (Auto) 6.16 H (1.56-6.13) K/mm3 Lymph # (Auto) 1.68 (1.18-3.74) K/mm3 Fre[place] # (Auto) 0.66 H (0.24-0.36) K/mm3 Eos # (Auto) 0.07 (0.04-0.36) K/mm3 Baso # (Auto) 0.02 (0.01-0.08) K/mm3 Sodium 140 (136-145) mEq/L Potassium 4.8 (3.5-5.1) mEq/L Chloride 106 (98-107) mEq/L Carbon Dioxide 29 (21-32) mEq/L Anion Gap 9.8 (5-15) BUN 41 H (7-18) mg/dL Creatinine 1.6 H (0.55-1.02) mg/dL Est Cr Clr Drug Dosing 19.75 mL/min Estimated GFR (MDRD) 31 (>60) mL/min BUN/Creatinine Ratio 25.6 H (14-18) Glucose 174 H (83-115) mg/dL POC Glucose 262 H (83-110) mg/dL Calcium 8.5 (8.5-10.1) mg/dL Total Bilirubin 0.4 (0.2-1.0) mg/dL AST 24 (15-37) U/L ALT 18 (14-59) U/L Alkaline Phosphatase 57 (46-116) U/L Total Protein 5.5 L (6.4-8.2) g/dl Albumin 2.9 L (3.4-5.0) g/dl Globulin 2.6 gm/dL Albumin/Globulin Ratio 1.1 (1-2) 11/16/16 11/16/16 Range/Units 05:41 11:41 WBC (3.98-10.04) K/mm3 RBC (3.98-5.22) M/mm3 Hgb (11.2-15.7) gm/L Hct (34.1-44.9) % MCV (79.4-94.8) fl MCH (25.6-32.2) pg MCHC (32.2-35.5) g/dl RDW Std Deviation (36.4-46.3) fL Plt Count (182-369) K/mm3 MPV (9.4-12.3) fl Neut % (Auto) (34.0-71.1) % Lymph % (Auto) (19.3-51.7) % Fre[place] % (Auto) (4.7-12.5) % Eos % (Auto) (0.7-5.8) Baso % (Auto) (0.1-1.2) % Neut # (Auto) (1.56-6.13) K/mm3 Lymph # (Auto) (1.18-3.74) K/mm3 [place] # (Auto) (0.24-0.36) K/mm3 Eos # (Auto) (0.04-0.36) K/mm3 Baso # (Auto) (0.01-0.08) K/mm3 Sodium (136-145) mEq/L Potassium (3.5-5.1) mEq/L Chloride (98-107) mEq/L Carbon Dioxide (21-32) mEq/L Anion Gap (5-15) BUN (7-18) mg/dL Creatinine (0.55-1.02) mg/dL Est Cr Clr Drug Dosing mL/min Estimated GFR (MDRD) (>60) mL/min BUN/Creatinine Ratio (14-18) Glucose (83-115) mg/dL POC Glucose 162 H 201 H (83-110) mg/dL Calcium (8.5-10.1) mg/dL Total Bilirubin (0.2-1.0) mg/dL AST (15-37) U/L ALT (14-59) U/L Alkaline Phosphatase (46-116) U/L Total Protein (6.4-8.2) g/dl Albumin (3.4-5.0) g/dl Globulin gm/dL Albumin/Globulin Ratio (1-2) Med Orders - Current: Current Medications Hydrocodone Bitart/Acetaminophen ([place] 325-5 Mg) 1 - 2 tab PO Q4H PRN PRN Reason: Pain Last Admin: 11/16/16 10:51 Dose: 2 tab Aspirin (Ecotrin) 325 mg PO BID [facility] Last Admin: 11/16/16 10:11 Dose: 325 mg Bisacodyl (Dulcolax) 5 mg PO DAILY PRN PRN Reason: Constipation Docusate Sodium (Colace) 100 mg PO BID [facility] Last Admin: 11/16/16 10:11 Dose: 100 mg Famotidine (Pepcid) 20 mg PO DAILY [facility] Last Admin: 11/16/16 10:10 Dose: 20 mg Hydrochlorothiazide (Hydrochlorothiazide) 25 mg PO DAILY [facility] Last Admin: 11/16/16 10:11 Dose: 25 mg Insulin Aspart (Novolog) 0 unit SUBCUT QIDACANDBED [facility] PRN Reason: Protocol Last Admin: 11/16/16 12:16 Dose: 2 units Levothyroxine Sodium (Levothyroxine) 75 mcg PO ACBREAKFAST [facility] Last Admin: 11/16/16 06:13 Dose: 75 mcg Lisinopril (Prinivil) 5 mg PO DAILY [facility] Last Admin: 11/16/16 10:10 Dose: 5 mg Magnesium Hydroxide (Milk Of Magnesia) 30 ml PO BID PRN PRN Reason: Constipation Metformin HCl (Glucophage) 1,000 mg PO BIDMEALS [facility] Last Admin: 11/16/16 07:52 Dose: 1,000 mg Morphine Sulfate (Morphine) 2 mg IVPUSH Q2H PRN PRN Reason: Breakthrough Pain Multivitamins (Thera) 1 each PO WITHBREAKFAST [facility] Last Admin: 11/16/16 07:52 Dose: 1 each Naloxone HCl (Narcan) 0.1 mg IVPUSH Q5M PRN PRN Reason: Oversedation Ondansetron HCl (Zofran) 4 mg IVPUSH Q6H PRN PRN Reason: Nausea/Vomiting Last Admin: 11/15/16 16:55 Dose: 4 mg Senna (Senna) 8.6 mg PO BID PRN PRN Reason: Constipation Simvastatin (Zocor) 20 mg PO BEDTIME [facility] Last Admin: 11/15/16 20:55 Dose: 20 mg Discontinued Medications Bupivacaine HCl (Marcaine 0.25%) Confirm Administered Dose 30 ml .ROUTE .STK- MED ONE Stop: 11/15/16 07:15 Last Admin: 11/15/16 10:36 Dose: 30 ml Cefazolin Sodium (Ancef) Confirm Administered Dose 2 gm .ROUTE .STK-MED ONE Stop: 11/15/16 07:14 Last Admin: 11/15/16 10:30 Dose: 2 gm Cefazolin Sodium (Ancef) Confirm Administered Dose 2 gm .ROUTE .STK-MED ONE Stop: 11/15/16 09:03 Morphine Sulfate 8 mg/Epinephrine HCl 0.3 mg/Cefuroxime Sodium 750 mg/Ketorolac Tromethamine 30 mg/Sodium Chloride 27.9 ml 0 mg .XX ONETIME ONE Stop: 11/15/16 07:31 Last Admin: 11/15/16 10:35 Dose: 788.3 mg Diphenhydramine HCl (Benadryl) 25 mg IVPUSH Q6H PRN PRN Reason: Pruritis Stop: 11/15/16 18:00 Ephedrine Sulfate (Ephedrine Sulfate) Confirm Administered Dose 50 mg .ROUTE .STK-MED ONE Stop: 11/15/16 10:16 Famotidine (Pepcid) 20 mg PO Q12H [facility] Last Admin: 11/15/16 20:55 Dose: 20 mg Fentanyl (Sublimaze) Confirm Administered Dose 100 mcg .ROUTE .STK-MED ONE Stop: 11/15/16 08:59 Lactated Ringer's (Ringers, Lactated) 1,000 mls @ 125 mls/hr IV ASDIRECTED [facility] Stop: 11/15/16 23:00 Last Admin: 11/15/16 07:30 Dose: 125 mls/hr Cefazolin Sodium/Dextrose 2 gm (/ Premix) 50 mls @ 100 mls/hr IV Q8H [facility] Stop: 11/16/16 08:29 Last Admin: 11/16/16 10:40 Dose: 100 mls/hr Lactated Ringer's (Ringers, Lactated) Confirm Administered Dose 1,000 mls @ as directed .ROUTE .STK-MED ONE Stop: 11/15/16 11:01 Iodine (Iodine 2% Mild Tincture) Confirm Administered Dose 30 ml .ROUTE .STK- MED ONE Stop: 11/15/16 07:15 Last Admin: 11/15/16 10:28 Dose: 18 ml Lidocaine/Sodium Bicarbonate (Buffered Lidocaine 1% In Ns 8.4%) 0.25 ml .XX ONETIME PRN PRN Reason: Prior to IV Start Stop: 11/15/16 18:00 Last Admin: 11/15/16 07:30 Dose: 0.25 ml Meperidine HCl (Demerol) 12.5 mg IVPUSH ONETIME PRN PRN Reason: Shivering Stop: 11/15/16 18:00 Morphine Sulfate (Duramorph Pf) Confirm Administered Dose 10 mg .ROUTE .STK-MED ONE Stop: 11/15/16 08:59 Ondansetron HCl (Zofran) 4 mg IVPUSH ONETIME PRN PRN Reason: Nausea/Vomiting Stop: 11/15/16 18:00 Last Admin: 11/15/16 11:36 Dose: 4 mg Phenylephrine HCl (Enrike-Synephrine) Confirm Administered Dose 10 mg .ROUTE .STK- MED ONE Stop: 11/15/16 09:51 Propofol (Diprivan 20 Ml) Confirm Administered Dose 600 mg .ROUTE .STK-MED ONE Stop: 11/15/16 08:59 Sodium Chloride (Saline Flush) 10 ml FLUSH ASDIRECTED PRN PRN Reason: Keep Vein Open Stop: 11/15/16 18:00 Tranexamic Acid (Cyklokapron) Confirm Administered Dose 1,000 mg .ROUTE .STK- MED ONE Stop: 11/15/16 07:14 Last Admin: 11/15/16 10:45 Dose: 1,000 mg - Exam Wound/Incisions: Dressing Dry and Intact General: Alert, Cooperative, No Acute Distress Lungs: Normal Respiratory Effort Extremities: Other (Left thigh soft. NVS intact for BLE. Jyothi's negative for BLE. ) - Problem List Review Problem List Initiated/Reviewed/Updated: Yes - My Orders Last 24 Hours: Active Orders 24 hr Category Date Time Status Blood Glucose Check, Bedside [RC] QIDACANDBED Care 11/16/16 10:56 Active Consistent Carbohydrate Diet [DIET] Diet 11/16/16 Lunch Active BASIC METABOLIC PANEL,BMP [CHEM] AM Lab 11/17/16 05:11 Ordered BASIC METABOLIC PANEL,BMP [CHEM] AM Lab 11/18/16 05:11 Ordered CBC WITH AUTO DIFF [HEME] AM Lab 11/17/16 05:11 Ordered CBC WITH AUTO DIFF [HEME] AM Lab 11/18/16 05:11 Ordered Aspirin [Ecotrin] Med 11/16/16 09:00 Active 325 mg PO BID Docusate Sodium [Colace] Med 11/15/16 21:00 Active 100 mg PO BID Famotidine [Pepcid] Med 11/16/16 09:00 Active 20 mg PO DAILY Hydrochlorothiazide Med 11/16/16 09:00 Active 25 mg PO DAILY Levothyroxine Med 11/16/16 06:00 Active 75 mcg PO ACBREAKFAST Lisinopril [Prinivil] Med 11/16/16 09:00 Active 5 mg PO DAILY Multivitamins,Therapeutic [Thera] Med 11/16/16 07:00 Active 1 each PO WITHBREAKFAST Simvastatin [Zocor] Med 11/15/16 21:00 Active 20 mg PO BEDTIME metFORMIN [Glucophage] Med 11/16/16 07:00 Active 1,000 mg PO BIDMEALS Medication Orders Hydrocodone Bitart/Acetaminophen ([place] 325-5 Mg) 1 - 2 tab PO Q4H PRN PRN Reason: Pain Last Admin: 11/16/16 10:51 Dose: 2 tab Admin: 11/16/16 06:12 Dose: 2 tab Admin: 11/16/16 02:19 Dose: 2 tab Admin: 11/15/16 20:55 Dose: 2 tab Aspirin (Ecotrin) 325 mg PO BID [facility] Last Admin: 11/16/16 10:11 Dose: 325 mg Bisacodyl (Dulcolax) 5 mg PO DAILY PRN PRN Reason: Constipation Docusate Sodium (Colace) 100 mg PO BID [facility] Last Admin: 11/16/16 10:11 Dose: 100 mg Admin: 11/15/16 20:54 Dose: 100 mg Famotidine (Pepcid) 20 mg PO DAILY [facility] Last Admin: 11/16/16 10:10 Dose: 20 mg Hydrochlorothiazide (Hydrochlorothiazide) 25 mg PO DAILY [facility] Last Admin: 11/16/16 10:11 Dose: 25 mg Insulin Aspart (Novolog) 0 unit SUBCUT QIDACANDBED [facility] PRN Reason: Protocol Last Admin: 11/16/16 12:16 Dose: 2 units Admin: 11/16/16 07:52 Dose: 1 units Admin: 11/15/16 21:57 Dose: 3 units Admin: 11/15/16 18:04 Dose: Not Given Admin: 11/15/16 16:14 Dose: Not Given Levothyroxine Sodium (Levothyroxine) 75 mcg PO ACBREAKFAST [facility] Last Admin: 11/16/16 06:13 Dose: 75 mcg Lisinopril (Prinivil) 5 mg PO DAILY [facility] Last Admin: 11/16/16 10:10 Dose: 5 mg Magnesium Hydroxide (Milk Of Magnesia) 30 ml PO BID PRN PRN Reason: Constipation Metformin HCl (Glucophage) 1,000 mg PO BIDMEALS [facility] Last Admin: 11/16/16 07:52 Dose: 1,000 mg Morphine Sulfate (Morphine) 2 mg IVPUSH Q2H PRN PRN Reason: Breakthrough Pain Multivitamins (Thera) 1 each PO WITHBREAKFAST [facility] Last Admin: 11/16/16 07:52 Dose: 1 each Naloxone HCl (Narcan) 0.1 mg IVPUSH Q5M PRN PRN Reason: Oversedation Ondansetron HCl (Zofran) 4 mg IVPUSH Q6H PRN PRN Reason: Nausea/Vomiting Last Admin: 11/15/16 16:55 Dose: 4 mg Senna (Senna) 8.6 mg PO BID PRN PRN Reason: Constipation Simvastatin (Zocor) 20 mg PO BEDTIME [facility] Last Admin: 11/15/16 20:55 Dose: 20 mg - Assessment Assessment (Free Text/Narrative):: POD#1 - left DUSTY - Plan Plan (Free Text/Narrative):: 1. Hgb 10.7 today. 2. 325mg ASA BID, TEDs, frequent mobility, SCDs. 3. Medical management per Hospitalist service. 4. Discharge to [place] on 11-18-2016.
[2016-11-16] MEDS: Simvastatin 20 MG Tab PO SCH (20:11)
[2016-11-17] MEDS: Levothyroxine 75 MCG Tab PO SCH (05:08)
[2016-11-17] MEDS: Acetaminophen/HYDROcodone 325-5 MG Tab PO PRN ×4 (05:08→21:32)
--- NOTE | 2016-11-17 06:44 | PCM.PN ---
- General Info Date of Service: 11/17/16 Admission Dx/Problem (Free Text): Admission Diagnosis/Problem Admission Diagnosis/Problem Osteoarthritis of hip POD #[address] Beavers, doing well. Denies c/o pain to her hip today. Denies nausea-resolved. Tolerating meals. Doing well working with PT/OT. VSS. Hgb 11.2 Plans for Rehab stay at [facility]. Functional Status: Reports: Pain Controlled, Tolerating Diet, Ambulating, Urinating, Incentive Spirometry. Denies: New Symptoms - Review of Systems General: Reports: No Symptoms HEENT: Reports: No Symptoms Pulmonary: Reports: No Symptoms Cardiovascular: Reports: No Symptoms Gastrointestinal: Reports: No Symptoms Genitourinary: Reports: No Symptoms Musculoskeletal: Reports: Leg Pain Skin: Reports: No Symptoms Neurological: Reports: No Symptoms Psychiatric: Reports: No Symptoms - Patient Data Vitals - Most Recent: Last Vital Signs Temp 98.1 F 11/17/16 00:00 Pulse 72 11/17/16 00:00 Resp 14 11/17/16 00:00 BP 110/61 11/17/16 00:00 Pulse Ox 95 11/17/16 00:00 Weight - Most Recent: 132 lb 6.4 oz I&O - Last 24 Hours: Intake & Output 11/16/16 11/16/16 11/17/16 14:59 22:59 06:59 Intake Total 720 880 100 Output Total 750 850 Balance 720 130 -750 Lab Results Last 24 Hours: Laboratory Results - last 24 hr 11/16/16 11/16/16 11/16/16 Range/Units 05:40 11:41 16:39 WBC (3.98-10.04) K/mm3 RBC (3.98-5.22) M/mm3 Hgb (11.2-15.7) gm/L Hct (34.1-44.9) % MCV (79.4-94.8) fl MCH (25.6-32.2) pg MCHC (32.2-35.5) g/dl RDW Std Deviation (36.4-46.3) fL Plt Count (182-369) K/mm3 MPV (9.4-12.3) fl Neut % (Auto) (34.0-71.1) % Lymph % (Auto) (19.3-51.7) % [place] % (Auto) (4.7-12.5) % Eos % (Auto) (0.7-5.8) Baso % (Auto) (0.1-1.2) % Neut # (Auto) (1.56-6.13) K/mm3 Lymph # (Auto) (1.18-3.74) K/mm3 [place] # (Auto) (0.24-0.36) K/mm3 Eos # (Auto) (0.04-0.36) K/mm3 Baso # (Auto) (0.01-0.08) K/mm3 Sodium 140 (136-145) mEq/L Potassium 4.8 (3.5-5.1) mEq/L Chloride 106 (98-107) mEq/L Carbon Dioxide 29 (21-32) mEq/L Anion Gap 9.8 (5-15) BUN 41 H (7-18) mg/dL Creatinine 1.6 H (0.55-1.02) mg/dL Est Cr Clr Drug Dosing 19.75 mL/min Estimated GFR (MDRD) 31 (>60) mL/min BUN/Creatinine Ratio 25.6 H (14-18) Glucose 174 H (83-115) mg/dL POC Glucose 201 H 158 H (83-110) mg/dL Calcium 8.5 (8.5-10.1) mg/dL Total Bilirubin 0.4 (0.2-1.0) mg/dL AST 24 (15-37) U/L ALT 18 (14-59) U/L Alkaline Phosphatase 57 (46-116) U/L Total Protein 5.5 L (6.4-8.2) g/dl Albumin 2.9 L (3.4-5.0) g/dl Globulin 2.6 gm/dL Albumin/Globulin Ratio 1.1 (1-2) 11/16/16 11/17/16 Range/Units 20:10 06:00 WBC 11.31 H (3.98-10.04) K/mm3 RBC 3.64 L (3.98-5.22) M/mm3 Hgb 11.2 (11.2-15.7) gm/L Hct 33.5 L (34.1-44.9) % MCV 92.0 (79.4-94.8) fl MCH 30.8 (25.6-32.2) pg MCHC 33.4 (32.2-35.5) g/dl RDW Std Deviation 42.0 (36.4-46.3) fL Plt Count 261 (182-369) K/mm3 MPV 9.4 (9.4-12.3) fl Neut % (Auto) 78.2 H (34.0-71.1) % Lymph % (Auto) 12.2 L (19.3-51.7) % [place] % (Auto) 7.1 (4.7-12.5) % Eos % (Auto) 1.9 (0.7-5.8) Baso % (Auto) 0.3 (0.1-1.2) % Neut # (Auto) 8.86 H (1.56-6.13) K/mm3 Lymph # (Auto) 1.38 (1.18-3.74) K/mm3 [place] # (Auto) 0.80 H (0.24-0.36) K/mm3 Eos # (Auto) 0.21 (0.04-0.36) K/mm3 Baso # (Auto) 0.03 (0.01-0.08) K/mm3 Sodium (136-145) mEq/L Potassium (3.5-5.1) mEq/L Chloride (98-107) mEq/L Carbon Dioxide (21-32) mEq/L Anion Gap (5-15) BUN (7-18) mg/dL Creatinine (0.55-1.02) mg/dL Est Cr Clr Drug Dosing mL/min Estimated GFR (MDRD) (>60) mL/min BUN/Creatinine Ratio (14-18) Glucose (83-115) mg/dL POC Glucose 213 H (83-110) mg/dL Calcium (8.5-10.1) mg/dL Total Bilirubin (0.2-1.0) mg/dL AST (15-37) U/L ALT (14-59) U/L Alkaline Phosphatase (46-116) U/L Total Protein (6.4-8.2) g/dl Albumin (3.4-5.0) g/dl Globulin gm/dL Albumin/Globulin Ratio (1-2) Med Orders - Current: Current Medications Hydrocodone Bitart/Acetaminophen ([place] 325-5 Mg) 1 - 2 tab PO Q4H PRN PRN Reason: Pain Last Admin: 11/17/16 05:08 Dose: 2 tab Aspirin (Ecotrin) 325 mg PO BID [facility] Last Admin: 11/16/16 20:10 Dose: 325 mg Bisacodyl (Dulcolax) 5 mg PO DAILY PRN PRN Reason: Constipation Docusate Sodium (Colace) 100 mg PO BID [facility] Last Admin: 11/16/16 20:11 Dose: 100 mg Famotidine (Pepcid) 20 mg PO DAILY [facility] Last Admin: 11/16/16 10:10 Dose: 20 mg Hydrochlorothiazide (Hydrochlorothiazide) 25 mg PO DAILY [facility] Last Admin: 11/16/16 10:11 Dose: 25 mg Insulin Aspart (Novolog) 0 unit SUBCUT QIDACANDBED [facility] PRN Reason: Protocol Last Admin: 11/16/16 21:56 Dose: 2 units Levothyroxine Sodium (Levothyroxine) 75 mcg PO ACBREAKFAST [facility] Last Admin: 11/17/16 05:08 Dose: 75 mcg Lisinopril (Prinivil) 5 mg PO DAILY [facility] Last Admin: 11/16/16 10:10 Dose: 5 mg Magnesium Hydroxide (Milk Of Magnesia) 30 ml PO BID PRN PRN Reason: Constipation Last Admin: 11/17/16 05:08 Dose: 30 ml Metformin HCl (Glucophage) 1,000 mg PO BIDMEALS [facility] Last Admin: 11/16/16 16:42 Dose: 1,000 mg Morphine Sulfate (Morphine) 2 mg IVPUSH Q2H PRN PRN Reason: Breakthrough Pain Last Admin: 11/17/16 05:08 Dose: 2 mg Multivitamins (Thera) 1 each PO WITHBREAKFAST [facility] Last Admin: 11/16/16 07:52 Dose: 1 each Naloxone HCl (Narcan) 0.1 mg IVPUSH Q5M PRN PRN Reason: Oversedation Ondansetron HCl (Zofran) 4 mg IVPUSH Q6H PRN PRN Reason: Nausea/Vomiting Last Admin: 11/15/16 16:55 Dose: 4 mg Senna (Senna) 8.6 mg PO BID PRN PRN Reason: Constipation Simvastatin (Zocor) 20 mg PO BEDTIME [facility] Last Admin: 11/16/16 20:11 Dose: 20 mg Discontinued Medications Bupivacaine HCl (Marcaine 0.25%) Confirm Administered Dose 30 ml .ROUTE .STK- MED ONE Stop: 11/15/16 07:15 Last Admin: 11/15/16 10:36 Dose: 30 ml Cefazolin Sodium (Ancef) Confirm Administered Dose 2 gm .ROUTE .STK-MED ONE Stop: 11/15/16 07:14 Last Admin: 11/15/16 10:30 Dose: 2 gm Cefazolin Sodium (Ancef) Confirm Administered Dose 2 gm .ROUTE .STK-MED ONE Stop: 11/15/16 09:03 Morphine Sulfate 8 mg/Epinephrine HCl 0.3 mg/Cefuroxime Sodium 750 mg/Ketorolac Tromethamine 30 mg/Sodium Chloride 27.9 ml 0 mg .XX ONETIME ONE Stop: 11/15/16 07:31 Last Admin: 11/15/16 10:35 Dose: 788.3 mg Diphenhydramine HCl (Benadryl) 25 mg IVPUSH Q6H PRN PRN Reason: Pruritis Stop: 11/15/16 18:00 Ephedrine Sulfate (Ephedrine Sulfate) Confirm Administered Dose 50 mg .ROUTE .STK-MED ONE Stop: 11/15/16 10:16 Famotidine (Pepcid) 20 mg PO Q12H [facility] Last Admin: 11/15/16 20:55 Dose: 20 mg Fentanyl (Sublimaze) Confirm Administered Dose 100 mcg .ROUTE .STK-MED ONE Stop: 11/15/16 08:59 Lactated Ringer's (Ringers, Lactated) 1,000 mls @ 125 mls/hr IV ASDIRECTED [facility] Stop: 11/15/16 23:00 Last Admin: 11/15/16 07:30 Dose: 125 mls/hr Cefazolin Sodium/Dextrose 2 gm (/ Premix) 50 mls @ 100 mls/hr IV Q8H [facility] Stop: 11/16/16 08:29 Last Admin: 11/16/16 10:40 Dose: 100 mls/hr Lactated Ringer's (Ringers, Lactated) Confirm Administered Dose 1,000 mls @ as directed .ROUTE .STK-MED ONE Stop: 11/15/16 11:01 Iodine (Iodine 2% Mild Tincture) Confirm Administered Dose 30 ml .ROUTE .STK- MED ONE Stop: 11/15/16 07:15 Last Admin: 11/15/16 10:28 Dose: 18 ml Lidocaine/Sodium Bicarbonate (Buffered Lidocaine 1% In Ns 8.4%) 0.25 ml .XX ONETIME PRN PRN Reason: Prior to IV Start Stop: 11/15/16 18:00 Last Admin: 11/15/16 07:30 Dose: 0.25 ml Meperidine HCl (Demerol) 12.5 mg IVPUSH ONETIME PRN PRN Reason: Shivering Stop: 11/15/16 18:00 Morphine Sulfate (Duramorph Pf) Confirm Administered Dose 10 mg .ROUTE .STK-MED ONE Stop: 11/15/16 08:59 Ondansetron HCl (Zofran) 4 mg IVPUSH ONETIME PRN PRN Reason: Nausea/Vomiting Stop: 11/15/16 18:00 Last Admin: 11/15/16 11:36 Dose: 4 mg Phenylephrine HCl (Enrike-Synephrine) Confirm Administered Dose 10 mg .ROUTE .STK- MED ONE Stop: 11/15/16 09:51 Propofol (Diprivan 20 Ml) Confirm Administered Dose 600 mg .ROUTE .STK-MED ONE Stop: 11/15/16 08:59 Sodium Chloride (Saline Flush) 10 ml FLUSH ASDIRECTED PRN PRN Reason: Keep Vein Open Stop: 11/15/16 18:00 Tranexamic Acid (Cyklokapron) Confirm Administered Dose 1,000 mg .ROUTE .STK- MED ONE Stop: 11/15/16 07:14 Last Admin: 11/15/16 10:45 Dose: 1,000 mg - Exam Quality Assessment: DVT Prophylaxis General: Alert, Oriented, Cooperative, No Acute Distress HEENT: Pupils Equal, Pupils Reactive, EOMI, Mucous Membr. Moist/[place] Neck: Supple Lungs: Clear to Auscultation, Normal Respiratory Effort, Decreased Breath Sounds (bases) Cardiovascular: Regular Rate, Regular Rhythm GI/Abdominal Exam: Normal Bowel Sounds, Soft, Non-Tender (Female) Exam: Deferred Extremities: Other (CMS intact distally; ice to hip) Peripheral Pulses: 1+: Dorsalis Pedis (L), Dorsalis Pedis (R) Wound/Incisions: Dressing Dry and Intact Neurological: No New Focal Deficit Psy/Mental Status: Alert, Normal Affect, Normal Mood - Problem List & Annotations (1) S/P total hip arthroplasty SNOMED Code(s): 899142073742, 837285390475 Code(s): Z96.649 - PRESENCE OF UNSPECIFIED ARTIFICIAL HIP JOINT Status: Acute Priority: High Current Visit: Yes Qualifiers: Laterality: left Qualified Code(s): Z96.642 - Presence of left artificial hip joint (2) Osteoarthritis SNOMED Code(s): 948879912 Code(s): M19.90 - UNSPECIFIED OSTEOARTHRITIS, UNSPECIFIED SITE Status: Acute Priority: High Current Visit: Yes Qualifiers: Osteoarthritis location: hip Osteoarthritis type: primary Laterality: left Qualified Code(s): M16.12 - Unilateral primary osteoarthritis, left hip (3) Type 2 diabetes mellitus SNOMED Code(s): 86921599 Code(s): E11.9 - TYPE 2 DIABETES MELLITUS WITHOUT COMPLICATIONS Status: Acute Priority: Medium Current Visit: Yes Qualifiers: Diabetes mellitus complication status: without complication Diabetes mellitus snf insulin use: without terminal manager use Qualified Code(s): E11.9 - Type 2 diabetes mellitus without complications (4) HTN (hypertension) SNOMED Code(s): 96422588 Code(s): I10 - ESSENTIAL (PRIMARY) HYPERTENSION Status: Acute Priority: Medium Current Visit: No Qualifiers: Hypertension type: essential hypertension Qualified Code(s): I10 - Essential (primary) hypertension (5) HLD (hyperlipidemia) SNOMED Code(s): 48978537 Code(s): E78.5 - HYPERLIPIDEMIA, UNSPECIFIED Status: Acute Priority: Medium Current Visit: No Qualifiers: Hyperlipidemia type: unspecified Qualified Code(s): E78.5 - Hyperlipidemia , unspecified (6) Hypothyroid SNOMED Code(s): 51546403 Code(s): E03.9 - HYPOTHYROIDISM, UNSPECIFIED Status: Acute Priority: Medium Current Visit: No Qualifiers: Hypothyroidism type: unspecified Qualified Code(s): E03.9 - Hypothyroidism , unspecified (7) Anemia SNOMED Code(s): 230426571 Code(s): D64.9 - ANEMIA, UNSPECIFIED Status: Acute Priority: Medium Current Visit: No Qualifiers: Anemia type: iron deficiency (8) GERD (gastroesophageal reflux disease) SNOMED Code(s): 604369800 Code(s): K21.9 - GASTRO-ESOPHAGEAL REFLUX DISEASE WITHOUT ESOPHAGITIS Status: Acute Priority: Medium Current Visit: No Qualifiers: Esophagitis presence: esophagitis presence not specified Qualified Code(s) : K21.9 - Gastro-esophageal reflux disease without esophagitis (9) CKD (chronic kidney disease) SNOMED Code(s): 477999223 Code(s): N18.9 - CHRONIC KIDNEY DISEASE, UNSPECIFIED Status: Acute Priority: Medium Current Visit: No Qualifiers: Chronic kidney disease stage: unspecified stage Qualified Code(s): N18.9 - Chronic kidney disease, unspecified - Problem List Review Problem List Initiated/Reviewed/Updated: Yes - My Orders Last 24 Hours: My Active Orders 11/16/16 06:00 Levothyroxine 75 mcg PO ACBREAKFAST 11/16/16 07:00 metFORMIN [Glucophage] 1,000 mg PO BIDMEALS 11/16/16 09:00 Hydrochlorothiazide 25 mg PO DAILY Lisinopril [Prinivil] 5 mg PO DAILY 11/16/16 10:56 Blood Glucose Check, Bedside [RC] QIDACANDBED 11/16/16 Lunch Consistent Carbohydrate Diet [DIET] 11/17/16 06:00 BASIC METABOLIC PANEL,BMP [CHEM] AM 11/18/16 05:11 BASIC METABOLIC PANEL,BMP [CHEM] AM CBC WITH AUTO DIFF [HEME] AM - Plan Plan:: I/P: S/P Lt DUSTY d/t Osteoarthritis -POD #[address] Beavers -Pain management and DVT prophylax per primary team -PT/OT -RT/IS -11.2 hgb- improving Chronic conditions:- cont home meds HTN- stable HLD CKD- stage 3, stable--creat 1.6 today Hypothyroidism- TSH normal on 04/24/16 at 3.20 DM 2- cont metformin, start tomorrow am; SSI to cover during hospital stay also ; A1C of 7.6 on 04/23/16 per PCP chart review/records review GERD- GI prophylax Anemia- as above, will follow hgb--chart review shows adequate workup by PCP on 08/17/16 documentation, referred to hematology at that time also. Other: CM/SW for assist with DC planning--Patient and care team planning for SNF rehab stay, plan for DC of this week to [facility]. Patient is doing well thus far. Plans for DC to [facility] for rehab tomorrow. Patient is Full Code Status
[2016-11-17] MEDS: metFORMIN 500 MG Tab PO SCH ×2 (06:45→17:43)
[2016-11-17] MEDS: Multivitamins,Therapeutic Tab PO SCH (06:45)
[2016-11-17] MEDS: Insulin Aspart 100 Units/ML 3 ML Pen SUBCUT SCH ×4 (07:05→21:15)
[2016-11-17] MEDS: Docusate Sodium 100 MG Cap PO SCH ×2 (09:50→21:15)
[2016-11-17] MEDS: Hydrochlorothiazide 25 MG Tab PO SCH (09:51)
[2016-11-17] MEDS: Aspirin 325 MG Tab.EC PO SCH ×2 (09:51→21:15)
[2016-11-17] MEDS: Lisinopril 5 MG Tab PO SCH (09:51)
[2016-11-17] MEDS: Famotidine 20 MG Tab PO SCH (09:52)
[2016-11-17] MEDS: Sennosides 8.6 MG Tab PO PRN (17:43)
--- NOTE | 2016-11-17 20:11 | PCM.SURGPN ---
- General Info Date of Service: 11/17/16 POD#: 2 Functional Status: Reports: Pain Controlled, Tolerating Diet, Ambulating, Urinating - Patient Data Vitals - Most Recent: Last Vital Signs Temp 98.4 F 11/17/16 19:29 Pulse 86 11/17/16 19:29 Resp 14 11/17/16 19:29 BP 117/35 L 11/17/16 19:29 Pulse Ox 96 11/17/16 20:00 Weight - Most Recent: 132 lb 6.4 oz I&O - Last 24 Hours: Intake & Output 11/17/16 11/17/16 11/17/16 06:59 14:59 22:59 Intake Total 100 360 610 Output Total 850 600 Balance -750 360 10 Lab Results Last 24 Hrs: Laboratory Results - last 24 hr 11/16/16 11/17/16 11/17/16 Range/Units 20:10 06:00 06:00 WBC 11.31 H (3.98-10.04) K/mm3 RBC 3.64 L (3.98-5.22) M/mm3 Hgb 11.2 (11.2-15.7) gm/L Hct 33.5 L (34.1-44.9) % MCV 92.0 (79.4-94.8) fl MCH 30.8 (25.6-32.2) pg MCHC 33.4 (32.2-35.5) g/dl RDW Std Deviation 42.0 (36.4-46.3) fL Plt Count 261 (182-369) K/mm3 MPV 9.4 (9.4-12.3) fl Neut % (Auto) 78.2 H (34.0-71.1) % Lymph % (Auto) 12.2 L (19.3-51.7) % [place] % (Auto) 7.1 (4.7-12.5) % Eos % (Auto) 1.9 (0.7-5.8) Baso % (Auto) 0.3 (0.1-1.2) % Neut # (Auto) 8.86 H (1.56-6.13) K/mm3 Lymph # (Auto) 1.38 (1.18-3.74) K/mm3 [place] # (Auto) 0.80 H (0.24-0.36) K/mm3 Eos # (Auto) 0.21 (0.04-0.36) K/mm3 Baso # (Auto) 0.03 (0.01-0.08) K/mm3 Sodium 139 (136-145) mEq/L Potassium 4.7 (3.5-5.1) mEq/L Chloride 102 (98-107) mEq/L Carbon Dioxide 26 (21-32) mEq/L Anion Gap 15.7 H (5-15) BUN 34 H (7-18) mg/dL Creatinine 1.5 H (0.55-1.02) mg/dL Est Cr Clr Drug Dosing 21.07 mL/min Estimated GFR (MDRD) 33 (>60) mL/min BUN/Creatinine Ratio 22.7 H (14-18) Glucose 180 H (83-115) mg/dL POC Glucose 213 H (83-110) mg/dL Calcium 8.5 (8.5-10.1) mg/dL 11/17/16 11/17/16 11/17/16 Range/Units 07:05 11:12 16:48 WBC (3.98-10.04) K/mm3 RBC (3.98-5.22) M/mm3 Hgb (11.2-15.7) gm/L Hct (34.1-44.9) % MCV (79.4-94.8) fl MCH (25.6-32.2) pg MCHC (32.2-35.5) g/dl RDW Std Deviation (36.4-46.3) fL Plt Count (182-369) K/mm3 MPV (9.4-12.3) fl Neut % (Auto) (34.0-71.1) % Lymph % (Auto) (19.3-51.7) % [place] % (Auto) (4.7-12.5) % Eos % (Auto) (0.7-5.8) Baso % (Auto) (0.1-1.2) % Neut # (Auto) (1.56-6.13) K/mm3 Lymph # (Auto) (1.18-3.74) K/mm3 [place] # (Auto) (0.24-0.36) K/mm3 Eos # (Auto) (0.04-0.36) K/mm3 Baso # (Auto) (0.01-0.08) K/mm3 Sodium (136-145) mEq/L Potassium (3.5-5.1) mEq/L Chloride (98-107) mEq/L Carbon Dioxide (21-32) mEq/L Anion Gap (5-15) BUN (7-18) mg/dL Creatinine (0.55-1.02) mg/dL Est Cr Clr Drug Dosing mL/min Estimated GFR (MDRD) (>60) mL/min BUN/Creatinine Ratio (14-18) Glucose (83-115) mg/dL POC Glucose 160 H 168 H 177 H (83-110) mg/dL Calcium (8.5-10.1) mg/dL Med Orders - Current: Current Medications Hydrocodone Bitart/Acetaminophen ([place] 325-5 Mg) 1 - 2 tab PO Q4H PRN PRN Reason: Pain Last Admin: 11/17/16 15:46 Dose: 2 tab Aspirin (Ecotrin) 325 mg PO BID [facility] Last Admin: 11/17/16 09:51 Dose: 325 mg Bisacodyl (Dulcolax) 5 mg PO DAILY PRN PRN Reason: Constipation Docusate Sodium (Colace) 100 mg PO BID [facility] Last Admin: 11/17/16 09:50 Dose: 100 mg Famotidine (Pepcid) 20 mg PO DAILY [facility] Last Admin: 11/17/16 09:52 Dose: 20 mg Hydrochlorothiazide (Hydrochlorothiazide) 25 mg PO DAILY [facility] Last Admin: 11/17/16 09:51 Dose: 25 mg Insulin Aspart (Novolog) 0 unit SUBCUT QIDACANDBED [facility] PRN Reason: Protocol Last Admin: 11/17/16 17:43 Dose: 1 units Levothyroxine Sodium (Levothyroxine) 75 mcg PO ACBREAKFAST [facility] Last Admin: 11/17/16 05:08 Dose: 75 mcg Lisinopril (Prinivil) 5 mg PO DAILY [facility] Last Admin: 11/17/16 09:51 Dose: 5 mg Magnesium Hydroxide (Milk Of Magnesia) 30 ml PO BID PRN PRN Reason: Constipation Last Admin: 11/17/16 05:08 Dose: 30 ml Metformin HCl (Glucophage) 1,000 mg PO BIDMEALS [facility] Last Admin: 11/17/16 17:43 Dose: 1,000 mg Morphine Sulfate (Morphine) 2 mg IVPUSH Q2H PRN PRN Reason: Breakthrough Pain Last Admin: 11/17/16 05:08 Dose: 2 mg Multivitamins (Thera) 1 each PO WITHBREAKFAST [facility] Last Admin: 11/17/16 06:45 Dose: 1 each Naloxone HCl (Narcan) 0.1 mg IVPUSH Q5M PRN PRN Reason: Oversedation Ondansetron HCl (Zofran) 4 mg IVPUSH Q6H PRN PRN Reason: Nausea/Vomiting Last Admin: 11/15/16 16:55 Dose: 4 mg Senna (Senna) 8.6 mg PO BID PRN PRN Reason: Constipation Last Admin: 11/17/16 17:43 Dose: 8.6 mg Simvastatin (Zocor) 20 mg PO BEDTIME [facility] Last Admin: 11/16/16 20:11 Dose: 20 mg Discontinued Medications Bupivacaine HCl (Marcaine 0.25%) Confirm Administered Dose 30 ml .ROUTE .STK- MED ONE Stop: 11/15/16 07:15 Last Admin: 11/15/16 10:36 Dose: 30 ml Cefazolin Sodium (Ancef) Confirm Administered Dose 2 gm .ROUTE .STK-MED ONE Stop: 11/15/16 07:14 Last Admin: 11/15/16 10:30 Dose: 2 gm Cefazolin Sodium (Ancef) Confirm Administered Dose 2 gm .ROUTE .STK-MED ONE Stop: 11/15/16 09:03 Morphine Sulfate 8 mg/Epinephrine HCl 0.3 mg/Cefuroxime Sodium 750 mg/Ketorolac Tromethamine 30 mg/Sodium Chloride 27.9 ml 0 mg .XX ONETIME ONE Stop: 11/15/16 07:31 Last Admin: 11/15/16 10:35 Dose: 788.3 mg Diphenhydramine HCl (Benadryl) 25 mg IVPUSH Q6H PRN PRN Reason: Pruritis Stop: 11/15/16 18:00 Ephedrine Sulfate (Ephedrine Sulfate) Confirm Administered Dose 50 mg .ROUTE .STK-MED ONE Stop: 11/15/16 10:16 Famotidine (Pepcid) 20 mg PO Q12H [facility] Last Admin: 11/15/16 20:55 Dose: 20 mg Fentanyl (Sublimaze) Confirm Administered Dose 100 mcg .ROUTE .STK-MED ONE Stop: 11/15/16 08:59 Lactated Ringer's (Ringers, Lactated) 1,000 mls @ 125 mls/hr IV ASDIRECTED [facility] Stop: 11/15/16 23:00 Last Admin: 11/15/16 07:30 Dose: 125 mls/hr Cefazolin Sodium/Dextrose 2 gm (/ Premix) 50 mls @ 100 mls/hr IV Q8H [facility] Stop: 11/16/16 08:29 Last Admin: 11/16/16 10:40 Dose: 100 mls/hr Lactated Ringer's (Ringers, Lactated) Confirm Administered Dose 1,000 mls @ as directed .ROUTE .STK-MED ONE Stop: 11/15/16 11:01 Iodine (Iodine 2% Mild Tincture) Confirm Administered Dose 30 ml .ROUTE .STK- MED ONE Stop: 11/15/16 07:15 Last Admin: 11/15/16 10:28 Dose: 18 ml Lidocaine/Sodium Bicarbonate (Buffered Lidocaine 1% In Ns 8.4%) 0.25 ml .XX ONETIME PRN PRN Reason: Prior to IV Start Stop: 11/15/16 18:00 Last Admin: 11/15/16 07:30 Dose: 0.25 ml Meperidine HCl (Demerol) 12.5 mg IVPUSH ONETIME PRN PRN Reason: Shivering Stop: 11/15/16 18:00 Morphine Sulfate (Duramorph Pf) Confirm Administered Dose 10 mg .ROUTE .STK-MED ONE Stop: 11/15/16 08:59 Ondansetron HCl (Zofran) 4 mg IVPUSH ONETIME PRN PRN Reason: Nausea/Vomiting Stop: 11/15/16 18:00 Last Admin: 11/15/16 11:36 Dose: 4 mg Phenylephrine HCl (Enrike-Synephrine) Confirm Administered Dose 10 mg .ROUTE .STK- MED ONE Stop: 11/15/16 09:51 Propofol (Diprivan 20 Ml) Confirm Administered Dose 600 mg .ROUTE .STK-MED ONE Stop: 11/15/16 08:59 Sodium Chloride (Saline Flush) 10 ml FLUSH ASDIRECTED PRN PRN Reason: Keep Vein Open Stop: 11/15/16 18:00 Tranexamic Acid (Cyklokapron) Confirm Administered Dose 1,000 mg .ROUTE .STK- MED ONE Stop: 11/15/16 07:14 Last Admin: 11/15/16 10:45 Dose: 1,000 mg - Exam Wound/Incisions: Dressing Dry and Intact General: Alert, Cooperative, No Acute Distress Lungs: Normal Respiratory Effort Extremities: Other (NVS intact for BLE. Jyothi's negative. Left thigh soft. ) - Problem List Review Problem List Initiated/Reviewed/Updated: Yes - My Orders Last 24 Hours: Active Orders 24 hr Category Date Time Status BASIC METABOLIC PANEL,BMP [CHEM] AM Lab 11/18/16 05:11 Ordered CBC WITH AUTO DIFF [HEME] AM Lab 11/18/16 05:11 Ordered Medication Orders Hydrocodone Bitart/Acetaminophen ([place] 325-5 Mg) 1 - 2 tab PO Q4H PRN PRN Reason: Pain Last Admin: 11/17/16 15:46 Dose: 2 tab Admin: 11/17/16 09:48 Dose: 2 tab Admin: 11/17/16 05:08 Dose: 2 tab Admin: 11/16/16 15:28 Dose: 2 tab Admin: 11/16/16 10:51 Dose: 2 tab Admin: 11/16/16 06:12 Dose: 2 tab Admin: 11/16/16 02:19 Dose: 2 tab Admin: 11/15/16 20:55 Dose: 2 tab Aspirin (Ecotrin) 325 mg PO BID [facility] Last Admin: 11/17/16 09:51 Dose: 325 mg Admin: 11/16/16 20:10 Dose: 325 mg Admin: 11/16/16 10:11 Dose: 325 mg Bisacodyl (Dulcolax) 5 mg PO DAILY PRN PRN Reason: Constipation Docusate Sodium (Colace) 100 mg PO BID [facility] Last Admin: 11/17/16 09:50 Dose: 100 mg Admin: 11/16/16 20:11 Dose: 100 mg Admin: 11/16/16 10:11 Dose: 100 mg Admin: 11/15/16 20:54 Dose: 100 mg Famotidine (Pepcid) 20 mg PO DAILY [facility] Last Admin: 11/17/16 09:52 Dose: 20 mg Admin: 11/16/16 10:10 Dose: 20 mg Hydrochlorothiazide (Hydrochlorothiazide) 25 mg PO DAILY [facility] Last Admin: 11/17/16 09:51 Dose: 25 mg Admin: 11/16/16 10:11 Dose: 25 mg Insulin Aspart (Novolog) 0 unit SUBCUT QIDACANDBED [facility] PRN Reason: Protocol Last Admin: 11/17/16 17:43 Dose: 1 units Admin: 11/17/16 12:06 Dose: 1 units Admin: 11/17/16 07:05 Dose: 1 units Admin: 11/16/16 21:56 Dose: 2 units Admin: 11/16/16 16:41 Dose: 1 units Admin: 11/16/16 12:16 Dose: 2 units Admin: 11/16/16 07:52 Dose: 1 units Admin: 11/15/16 21:57 Dose: 3 units Admin: 11/15/16 18:04 Dose: Not Given Admin: 11/15/16 16:14 Dose: Not Given Levothyroxine Sodium (Levothyroxine) 75 mcg PO ACBREAKFAST [facility] Last Admin: 11/17/16 05:08 Dose: 75 mcg Admin: 11/16/16 06:13 Dose: 75 mcg Lisinopril (Prinivil) 5 mg PO DAILY [facility] Last Admin: 11/17/16 09:51 Dose: 5 mg Admin: 11/16/16 10:10 Dose: 5 mg Magnesium Hydroxide (Milk Of Magnesia) 30 ml PO BID PRN PRN Reason: Constipation Last Admin: 11/17/16 05:08 Dose: 30 ml Metformin HCl (Glucophage) 1,000 mg PO BIDMEALS [facility] Last Admin: 11/17/16 17:43 Dose: 1,000 mg Admin: 11/17/16 06:45 Dose: 1,000 mg Admin: 11/16/16 16:42 Dose: 1,000 mg Admin: 11/16/16 07:52 Dose: 1,000 mg Morphine Sulfate (Morphine) 2 mg IVPUSH Q2H PRN PRN Reason: Breakthrough Pain Last Admin: 11/17/16 05:08 Dose: 2 mg Multivitamins (Thera) 1 each PO WITHBREAKFAST [facility] Last Admin: 11/17/16 06:45 Dose: 1 each Admin: 11/16/16 07:52 Dose: 1 each Naloxone HCl (Narcan) 0.1 mg IVPUSH Q5M PRN PRN Reason: Oversedation Ondansetron HCl (Zofran) 4 mg IVPUSH Q6H PRN PRN Reason: Nausea/Vomiting Last Admin: 11/15/16 16:55 Dose: 4 mg Senna (Senna) 8.6 mg PO BID PRN PRN Reason: Constipation Last Admin: 11/17/16 17:43 Dose: 8.6 mg Simvastatin (Zocor) 20 mg PO BEDTIME [facility] Last Admin: 11/16/16 20:11 Dose: 20 mg Admin: 11/15/16 20:55 Dose: 20 mg - Assessment Assessment (Free Text/Narrative):: POD#2 - left DUSTY - Plan Plan (Free Text/Narrative):: 1. Medical management per Hospitalist service. The pt's blood sugars are being monitored and treated. 2. Continue with P.T. and O.T. Pt is progressing well. 3. 325mg ASA BID, SCDs, TEDs. 4. Discharge to [place] tomorrow for continued rehabilitation. The pt will remain in Hospital for >96 hours while awaiting chcf placement and for continued monitoring and therapy. Dr. Beavers evaluated the pt today.
[2016-11-17] MEDS: Simvastatin 20 MG Tab PO SCH (21:15)
[2016-11-18] MEDS: Acetaminophen/HYDROcodone 325-5 MG Tab PO PRN ×2 (04:22→08:19)
[2016-11-18] MEDS: Multivitamins,Therapeutic Tab PO SCH (06:11)
[2016-11-18] MEDS: Levothyroxine 75 MCG Tab PO SCH (06:11)
[2016-11-18] MEDS: metFORMIN 500 MG Tab PO SCH (06:11)
[2016-11-18] MEDS: Insulin Aspart 100 Units/ML 3 ML Pen SUBCUT SCH ×2 (06:59→11:07)
--- NOTE | 2016-11-18 07:13 | PCM.CONSN ---
- General Info Date of Service: 11/18/16 Admission Dx/Problem (Free Text): Admission Diagnosis/Problem Admission Diagnosis/Problem Osteoarthritis of hip POD #[address] Beavers, doing well. Denies c/o pain to her hip today. Denies nausea-resolved. Tolerating meals. Doing well working with PT/OT. VSS. Hgb 11.0 Plans for Rehab stay at [facility]; plans for DC today. Doing well. Functional Status: Reports: Pain Controlled, Tolerating Diet, Ambulating, Urinating, Incentive Spirometry. Denies: New Symptoms - Review of Systems General: Reports: No Symptoms HEENT: Reports: No Symptoms Pulmonary: Reports: No Symptoms Cardiovascular: Reports: No Symptoms Gastrointestinal: Reports: No Symptoms Genitourinary: Reports: No Symptoms Musculoskeletal: Reports: Leg Pain Skin: Reports: No Symptoms Neurological: Reports: No Symptoms Psychiatric: Reports: No Symptoms - Patient Data Vitals - Most Recent: Last Vital Signs Temp 97.7 F 11/18/16 04:00 Pulse 88 11/18/16 04:00 Resp 16 11/18/16 04:00 BP 126/61 11/18/16 04:00 Pulse Ox 96 11/18/16 04:00 Weight - Most Recent: 133 lb 12.8 oz I&O - Last 24 Hours: Intake & Output 11/17/16 11/18/16 11/18/16 22:59 06:59 14:59 Intake Total 610 200 Output Total 600 Balance 10 200 Lab Results Last 24 Hours: Laboratory Results - last 24 hr 11/17/16 11/17/16 11/17/16 Range/Units 07:05 11:12 16:48 WBC (3.98-10.04) K/mm3 RBC (3.98-5.22) M/mm3 Hgb (11.2-15.7) gm/L Hct (34.1-44.9) % MCV (79.4-94.8) fl MCH (25.6-32.2) pg MCHC (32.2-35.5) g/dl RDW Std Deviation (36.4-46.3) fL Plt Count (182-369) K/mm3 MPV (9.4-12.3) fl Neut % (Auto) (34.0-71.1) % Lymph % (Auto) (19.3-51.7) % [place] % (Auto) (4.7-12.5) % Eos % (Auto) (0.7-5.8) Baso % (Auto) (0.1-1.2) % Neut # (Auto) (1.56-6.13) K/mm3 Lymph # (Auto) (1.18-3.74) K/mm3 [place] # (Auto) (0.24-0.36) K/mm3 Eos # (Auto) (0.04-0.36) K/mm3 Baso # (Auto) (0.01-0.08) K/mm3 Manual Slide Review POC Glucose 160 H 168 H 177 H (83-110) mg/dL 11/17/16 11/18/16 11/18/16 Range/Units 21:06 06:15 06:16 WBC 9.48 (3.98-10.04) K/mm3 RBC 3.60 L (3.98-5.22) M/mm3 Hgb 11.0 L (11.2-15.7) gm/L Hct 33.7 L (34.1-44.9) % MCV 93.6 (79.4-94.8) fl MCH 30.6 (25.6-32.2) pg MCHC 32.6 (32.2-35.5) g/dl RDW Std Deviation 42.9 (36.4-46.3) fL Plt Count 235 (182-369) K/mm3 MPV 9.6 (9.4-12.3) fl Neut % (Auto) 78.2 H (34.0-71.1) % Lymph % (Auto) 9.5 L (19.3-51.7) % [place] % (Auto) 8.1 (4.7-12.5) % Eos % (Auto) 3.6 (0.7-5.8) Baso % (Auto) 0.3 (0.1-1.2) % Neut # (Auto) 7.41 H (1.56-6.13) K/mm3 Lymph # (Auto) 0.90 L (1.18-3.74) K/mm3 [place] # (Auto) 0.77 H (0.24-0.36) K/mm3 Eos # (Auto) 0.34 (0.04-0.36) K/mm3 Baso # (Auto) 0.03 (0.01-0.08) K/mm3 Manual Slide Review Abnormal smear POC Glucose 241 H 172 H (83-110) mg/dL Med Orders - Current: Current Medications Hydrocodone Bitart/Acetaminophen ([place] 325-5 Mg) 1 - 2 tab PO Q4H PRN PRN Reason: Pain Last Admin: 11/18/16 04:22 Dose: 2 tab Aspirin (Ecotrin) 325 mg PO BID [facility] Last Admin: 11/17/16 21:15 Dose: 325 mg Bisacodyl (Dulcolax) 5 mg PO DAILY PRN PRN Reason: Constipation Docusate Sodium (Colace) 100 mg PO BID [facility] Last Admin: 11/17/16 21:15 Dose: 100 mg Famotidine (Pepcid) 20 mg PO DAILY [facility] Last Admin: 11/17/16 09:52 Dose: 20 mg Hydrochlorothiazide (Hydrochlorothiazide) 25 mg PO DAILY [facility] Last Admin: 11/17/16 09:51 Dose: 25 mg Insulin Aspart (Novolog) 0 unit SUBCUT QIDACANDBED [facility] PRN Reason: Protocol Last Admin: 11/18/16 06:59 Dose: 1 units Levothyroxine Sodium (Levothyroxine) 75 mcg PO ACBREAKFAST [facility] Last Admin: 11/18/16 06:11 Dose: 75 mcg Lisinopril (Prinivil) 5 mg PO DAILY [facility] Last Admin: 11/17/16 09:51 Dose: 5 mg Magnesium Hydroxide (Milk Of Magnesia) 30 ml PO BID PRN PRN Reason: Constipation Last Admin: 11/17/16 05:08 Dose: 30 ml Metformin HCl (Glucophage) 1,000 mg PO BIDMEALS [facility] Last Admin: 11/18/16 06:11 Dose: 1,000 mg Morphine Sulfate (Morphine) 2 mg IVPUSH Q2H PRN PRN Reason: Breakthrough Pain Last Admin: 11/17/16 05:08 Dose: 2 mg Multivitamins (Thera) 1 each PO WITHBREAKFAST [facility] Last Admin: 11/18/16 06:11 Dose: 1 each Naloxone HCl (Narcan) 0.1 mg IVPUSH Q5M PRN PRN Reason: Oversedation Ondansetron HCl (Zofran) 4 mg IVPUSH Q6H PRN PRN Reason: Nausea/Vomiting Last Admin: 11/15/16 16:55 Dose: 4 mg Senna (Senna) 8.6 mg PO BID PRN PRN Reason: Constipation Last Admin: 11/17/16 17:43 Dose: 8.6 mg Simvastatin (Zocor) 20 mg PO BEDTIME [facility] Last Admin: 11/17/16 21:15 Dose: 20 mg Discontinued Medications Bupivacaine HCl (Marcaine 0.25%) Confirm Administered Dose 30 ml .ROUTE .STK- MED ONE Stop: 11/15/16 07:15 Last Admin: 11/15/16 10:36 Dose: 30 ml Cefazolin Sodium (Ancef) Confirm Administered Dose 2 gm .ROUTE .STK-MED ONE Stop: 11/15/16 07:14 Last Admin: 11/15/16 10:30 Dose: 2 gm Cefazolin Sodium (Ancef) Confirm Administered Dose 2 gm .ROUTE .STK-MED ONE Stop: 11/15/16 09:03 Morphine Sulfate 8 mg/Epinephrine HCl 0.3 mg/Cefuroxime Sodium 750 mg/Ketorolac Tromethamine 30 mg/Sodium Chloride 27.9 ml 0 mg .XX ONETIME ONE Stop: 11/15/16 07:31 Last Admin: 11/15/16 10:35 Dose: 788.3 mg Diphenhydramine HCl (Benadryl) 25 mg IVPUSH Q6H PRN PRN Reason: Pruritis Stop: 11/15/16 18:00 Ephedrine Sulfate (Ephedrine Sulfate) Confirm Administered Dose 50 mg .ROUTE .STK-MED ONE Stop: 11/15/16 10:16 Famotidine (Pepcid) 20 mg PO Q12H [facility] Last Admin: 11/15/16 20:55 Dose: 20 mg Fentanyl (Sublimaze) Confirm Administered Dose 100 mcg .ROUTE .STK-MED ONE Stop: 11/15/16 08:59 Lactated Ringer's (Ringers, Lactated) 1,000 mls @ 125 mls/hr IV ASDIRECTED [facility] Stop: 11/15/16 23:00 Last Admin: 11/15/16 07:30 Dose: 125 mls/hr Cefazolin Sodium/Dextrose 2 gm (/ Premix) 50 mls @ 100 mls/hr IV Q8H [facility] Stop: 11/16/16 08:29 Last Admin: 11/16/16 10:40 Dose: 100 mls/hr Lactated Ringer's (Ringers, Lactated) Confirm Administered Dose 1,000 mls @ as directed .ROUTE .STK-MED ONE Stop: 11/15/16 11:01 Iodine (Iodine 2% Mild Tincture) Confirm Administered Dose 30 ml .ROUTE .STK- MED ONE Stop: 11/15/16 07:15 Last Admin: 11/15/16 10:28 Dose: 18 ml Lidocaine/Sodium Bicarbonate (Buffered Lidocaine 1% In Ns 8.4%) 0.25 ml .XX ONETIME PRN PRN Reason: Prior to IV Start Stop: 11/15/16 18:00 Last Admin: 11/15/16 07:30 Dose: 0.25 ml Meperidine HCl (Demerol) 12.5 mg IVPUSH ONETIME PRN PRN Reason: Shivering Stop: 11/15/16 18:00 Morphine Sulfate (Duramorph Pf) Confirm Administered Dose 10 mg .ROUTE .STK-MED ONE Stop: 11/15/16 08:59 Ondansetron HCl (Zofran) 4 mg IVPUSH ONETIME PRN PRN Reason: Nausea/Vomiting Stop: 11/15/16 18:00 Last Admin: 11/15/16 11:36 Dose: 4 mg Phenylephrine HCl (Enrike-Synephrine) Confirm Administered Dose 10 mg .ROUTE .STK- MED ONE Stop: 11/15/16 09:51 Propofol (Diprivan 20 Ml) Confirm Administered Dose 600 mg .ROUTE .STK-MED ONE Stop: 11/15/16 08:59 Sodium Chloride (Saline Flush) 10 ml FLUSH ASDIRECTED PRN PRN Reason: Keep Vein Open Stop: 11/15/16 18:00 Tranexamic Acid (Cyklokapron) Confirm Administered Dose 1,000 mg .ROUTE .STK- MED ONE Stop: 11/15/16 07:14 Last Admin: 11/15/16 10:45 Dose: 1,000 mg - Exam Quality Assessment: DVT Prophylaxis General: Alert, Oriented, Cooperative, No Acute Distress HEENT: Pupils Equal, Pupils Reactive, EOMI, Mucous Membr. Moist/[place] Neck: Supple Lungs: Clear to Auscultation, Normal Respiratory Effort, Decreased Breath Sounds (bases) Cardiovascular: Regular Rate, Regular Rhythm GI/Abdominal Exam: Normal Bowel Sounds, Soft, Non-Tender (Female) Exam: Deferred Back Exam: Normal Inspection Extremities: Other (Teds, SCD's and ice to hip) Peripheral Pulses: 1+: Dorsalis Pedis (L), Dorsalis Pedis (R) Wound/Incisions: Dressing Dry and Intact Neurological: No New Focal Deficit Psy/Mental Status: Alert, Normal Affect, Normal Mood Consult PN Assessment/Plan POD#: 3 Procedures: Procedures 3D RENDER W/INTRP POSTPROCES (10/02/15) BLOOD TRANSFUSION SERVICE (11/10/16) BLOOD TYPING SEROLOGIC ABO (11/10/16) BLOOD TYPING SEROLOGIC RH(D) (11/10/16) COLONOSCOPY AND BIOPSY (01/19/16) COLONOSCOPY W/LESION REMOVAL (02/03/16) COLONOSCOPY W/RESECTION (02/03/16) COMPATIBILITY TEST ANTIGLOB (11/10/16) CT LOWER EXTREMITY W/O DYE (10/02/15) EGD BIOPSY SINGLE/MULTIPLE (01/19/16) RBC ANTIBODY SCREEN (11/10/16) ROUTINE VENIPUNCTURE (11/10/16) THER/PROPH/DIAG INJ IV PUSH (11/10/16) TISSUE EXAM BY PATHOLOGIST (02/03/16) (1) S/P total hip arthroplasty SNOMED Code(s): 634077682123, 807734008418 Code(s): Z96.649 - PRESENCE OF UNSPECIFIED ARTIFICIAL HIP JOINT Priority: High Current Visit: Yes Qualifiers: Laterality: left Qualified Code(s): Z96.642 - Presence of left artificial hip joint (2) Osteoarthritis SNOMED Code(s): 511801881 Code(s): M19.90 - UNSPECIFIED OSTEOARTHRITIS, UNSPECIFIED SITE Priority: High Current Visit: Yes Qualifiers: Osteoarthritis location: hip Osteoarthritis type: primary Laterality: left Qualified Code(s): M16.12 - Unilateral primary osteoarthritis, left hip (3) Type 2 diabetes mellitus SNOMED Code(s): 83462185 Code(s): E11.9 - TYPE 2 DIABETES MELLITUS WITHOUT COMPLICATIONS Priority: Medium Current Visit: Yes Qualifiers: Diabetes mellitus complication status: without complication Diabetes mellitus nursing home insulin use: without terminal manager use Qualified Code(s): E11.9 - Type 2 diabetes mellitus without complications (4) HTN (hypertension) SNOMED Code(s): 31110359 Code(s): I10 - ESSENTIAL (PRIMARY) HYPERTENSION Priority: Medium Current Visit: No Qualifiers: Hypertension type: essential hypertension Qualified Code(s): I10 - Essential (primary) hypertension (5) HLD (hyperlipidemia) SNOMED Code(s): 77007019 Code(s): E78.5 - HYPERLIPIDEMIA, UNSPECIFIED Priority: Medium Current Visit: No Qualifiers: Hyperlipidemia type: unspecified Qualified Code(s): E78.5 - Hyperlipidemia , unspecified (6) Hypothyroid SNOMED Code(s): 19360253 Code(s): E03.9 - HYPOTHYROIDISM, UNSPECIFIED Priority: Medium Current Visit: No Qualifiers: Hypothyroidism type: unspecified Qualified Code(s): E03.9 - Hypothyroidism , unspecified (7) Anemia SNOMED Code(s): 800716703 Code(s): D64.9 - ANEMIA, UNSPECIFIED Priority: Medium Current Visit: No Qualifiers: Anemia type: iron deficiency (8) GERD (gastroesophageal reflux disease) SNOMED Code(s): 193748204 Code(s): K21.9 - GASTRO-ESOPHAGEAL REFLUX DISEASE WITHOUT ESOPHAGITIS Priority: Medium Current Visit: No Qualifiers: Esophagitis presence: esophagitis presence not specified Qualified Code(s) : K21.9 - Gastro-esophageal reflux disease without esophagitis (9) CKD (chronic kidney disease) SNOMED Code(s): 853671732 Code(s): N18.9 - CHRONIC KIDNEY DISEASE, UNSPECIFIED Priority: Medium Current Visit: No Qualifiers: Chronic kidney disease stage: unspecified stage Qualified Code(s): N18.9 - Chronic kidney disease, unspecified Problem List Initiated/Reviewed/Updated: Yes My Orders Last 24 Hours: My Active Orders 11/18/16 06:15 BASIC METABOLIC PANEL,BMP [CHEM] AM Plan: I/P: S/P Lt DUSTY d/t Osteoarthritis -POD #[address] Beavers -Pain management and DVT prophylax per primary team -PT/OT -RT/IS -10.6 preop hgb (chart review, last reading I was able to find was on 08/17/16 , Hematology documents hgb ranging 9.9-9.3 in the last year) -today 11.0 Chronic conditions:- cont home meds HTN- stable HLD CKD- stage 3, stable--creat 1.6 today Hypothyroidism- TSH normal on 04/24/16 at 3.20 DM 2- cont metformin, start tomorrow am; SSI to cover during hospital stay also ; A1C of 7.6 on 04/23/16 per PCP chart review/records review GERD- GI prophylax Anemia- as above, will follow hgb--chart review shows adequate workup by PCP on 08/17/16 documentation, referred to hematology at that time also. Other: CM/SW for assist with DC planning--Patient and care team planning for SNF rehab stay, plan for DC today to [facility]. Patient is doing well thus far; ok for dc today from Hospitalist standpoint. Patient is Full Code Status
[2016-11-18] MEDS: Docusate Sodium 100 MG Cap PO SCH (08:18)
[2016-11-18] MEDS: Hydrochlorothiazide 25 MG Tab PO SCH (08:18)
[2016-11-18] MEDS: Sennosides 8.6 MG Tab PO PRN (08:18)
[2016-11-18] MEDS: Aspirin 325 MG Tab.EC PO SCH (08:19)
[2016-11-18] MEDS: Lisinopril 5 MG Tab PO SCH (08:19)
[2016-11-18] MEDS: Famotidine 20 MG Tab PO SCH (08:19)
[2016-11-18] MEDS ORDERED: Pneumococcal 13-Valent Conjugate Vaccine 0.5 ML Syringe IM ONE (10:45)
[2016-11-18] MEDS ORDERED: Bisacodyl 10 MG Supp RECTAL ONE (12:05)
[2016-11-18 12:30] VITALS: BP 129/61
--- NOTE | 2016-11-18 19:59 | PCM.DCSUM1 ---
Discharge Summary - Hospital Course Brief History: Scarlett is an 86 yo female who underwent left DUSTY with Dr. Beavers on . The procedure was completed under spinal anesthesia with sedation. The pt tolerated the procedure well and was admitted to the Medical-Surgical Unit. The pt received deyvi-operative antibiotic therapy. Medical managment was provided by the Hospitalist service and the pt's hospital course was uneventful. A Mepilex dressing was applied to the surgical site at time of surgery and this remained clean and dry. On POD#1, 325mg ASA BID was initiated for VTE prophylaxis. SCDs and TEDs were also used. The pt participated in P.T. and O.T. and progressed well. She was allowed to WBAT and used a FWW for mobility. She followed DUSTY precautions. On POD#1, the pt's Hgb was 10.7. On POD#3, the pt was deemed [facility] - Discharge Data Discharge Date: 11/18/16 Discharge Disposition: DC/Tfer to SNF 03 Condition: Good - Patient Summary/Data Operative Procedure(s) Performed: left total hip arthroplasty Consults: Consultations 11/15/16 08:53 Consult to Case Management [CONS] Routine Consult to Physician [CONS] Routine OT Evaluation and Treatment [CONS] Routine 11/15/16 08:59 PT Evaluation and Treatment [CONS] Routine - Patient Instructions Diet: Heart Healthy Diet, Diabetic Diet Activity: As Tolerated (with PT/OT to eval and tx ) Driving: Do Not Drive Showering/Bathing: May Shower Wound/Incision Care: Keep Operative Site/Wound Site Clean and Dry, Do NOT Change Dressing Notify Provider of: Fever, Increased Pain, Swelling and Redness, Drainage, Nausea and/or Vomiting Other/Special Instructions: Please get up and moving around every hour while awake. Have help from the nurses and prison staff when you are up and walking. Participate in P.T. and O.T. Please use the 325 mg aspirin twice daily to help prevent blood clots. You are to wear the SWETHA hose during the day and may remove these at night. Please use a pillow between you legs when sitting and laying. Please follow the total hip precautions. Please call the Clinic with questions or concerns - [phone]. - Discharge Plan Prescriptions/Med Rec: Acetaminophen/HYDROcodone [Sebring 325-5 MG] 1 - 2 tab PO Q4H PRN #60 tablet PRN Reason: Pain Aspirin [Ecotrin] 325 mg PO BID #84 tab.ec Docusate Sodium [Colace] 100 mg PO BID #60 cap Home Medications: Home Meds Calcium Carbonate/Vitamin D3 [Calcium 600 + Vit D 400 Softgl] 1 cap PO DAILY [History] Hydrochlorothiazide 25 mg PO DAILY 01/19/16 [History] Levothyroxine 75 mcg PO DAILY 01/19/16 [History] Lisinopril [Prinivil] 5 mg PO DAILY 01/19/16 [History] Omeprazole Magnesium [Prilosec Otc] 20 mg PO DAILY PRN 01/19/16 [History] Pravastatin Sodium [Pravastatin (Pravachol)] 40 mg PO DAILY 01/19/16 [History] metFORMIN [Glucophage] 1,000 mg PO BID 01/19/16 [History] Multivitamin [One Daily] 1 tab PO DAILY 11/12/16 [History] Acetaminophen/HYDROcodone [Sebring 325-5 MG] 1 - 2 tab PO Q4H PRN #60 tablet 11/18 [Rx] Aspirin [Ecotrin] 325 mg PO BID #84 tab.ec 11/18/16 [Rx] Docusate Sodium [Colace] 100 mg PO BID #60 cap 11/18/16 [Rx] Magnesium Hydroxide [Milk of Magnesia] 30 ml PO BID PRN cup 11/18/16 [Rx] Patient Handouts: Total Hip Replacement, [id number], Total Hip Replacement, Care After, [id number] Referrals: Evelia Slater MD [Primary Care Provider] - Khushboo Borges PA-C [Physician Plate Glass Polisher] - - Patient Data Vitals - Most Recent: Last Vital Signs Temp 97.7 F 11/18/16 12:07 Pulse 85 11/18/16 12:07 Resp 18 11/18/16 12:07 BP 129/61 11/18/16 12:07 Pulse Ox 98 11/18/16 12:07 Weight - Most Recent: 133 lb 12.8 oz I&O - Last 24 hours: Intake & Output 11/18/16 11/18/16 11/18/16 06:59 14:59 22:59 Intake Total 200 720 Output Total 400 Balance 200 320 Lab Results - Last 24 hrs: Laboratory Results - last 24 hr 11/17/16 11/18/16 11/18/16 Range/Units 21:06 06:15 06:15 WBC 9.48 (3.98-10.04) K/mm3 RBC 3.60 L (3.98-5.22) M/mm3 Hgb 11.0 L (11.2-15.7) gm/L Hct 33.7 L (34.1-44.9) % MCV 93.6 (79.4-94.8) fl MCH 30.6 (25.6-32.2) pg MCHC 32.6 (32.2-35.5) g/dl RDW Std Deviation 42.9 (36.4-46.3) fL Plt Count 235 (182-369) K/mm3 MPV 9.6 (9.4-12.3) fl Neut % (Auto) 78.2 H (34.0-71.1) % Lymph % (Auto) 9.5 L (19.3-51.7) % [place] % (Auto) 8.1 (4.7-12.5) % Eos % (Auto) 3.6 (0.7-5.8) Baso % (Auto) 0.3 (0.1-1.2) % Neut # (Auto) 7.41 H (1.56-6.13) K/mm3 Lymph # (Auto) 0.90 L (1.18-3.74) K/mm3 [place] # (Auto) 0.77 H (0.24-0.36) K/mm3 Eos # (Auto) 0.34 (0.04-0.36) K/mm3 Baso # (Auto) 0.03 (0.01-0.08) K/mm3 Manual Slide Review Abnormal smear Sodium 141 (136-145) mEq/L Potassium 5.2 H (3.5-5.1) mEq/L Chloride 107 (98-107) mEq/L Carbon Dioxide 26 (21-32) mEq/L Anion Gap 13.2 (5-15) BUN 33 H (7-18) mg/dL Creatinine 1.4 H (0.55-1.02) mg/dL Est Cr Clr Drug Dosing 22.57 mL/min Estimated GFR (MDRD) 36 (>60) mL/min BUN/Creatinine Ratio 23.6 H (14-18) Glucose 152 H (83-115) mg/dL POC Glucose 241 H (83-110) mg/dL Calcium 8.8 (8.5-10.1) mg/dL 11/18/16 11/18/16 Range/Units 06:16 11:00 WBC (3.98-10.04) K/mm3 RBC (3.98-5.22) M/mm3 Hgb (11.2-15.7) gm/L Hct (34.1-44.9) % MCV (79.4-94.8) fl MCH (25.6-32.2) pg MCHC (32.2-35.5) g/dl RDW Std Deviation (36.4-46.3) fL Plt Count (182-369) K/mm3 MPV (9.4-12.3) fl Neut % (Auto) (34.0-71.1) % Lymph % (Auto) (19.3-51.7) % [place] % (Auto) (4.7-12.5) % Eos % (Auto) (0.7-5.8) Baso % (Auto) (0.1-1.2) % Neut # (Auto) (1.56-6.13) K/mm3 Lymph # (Auto) (1.18-3.74) K/mm3 [place] # (Auto) (0.24-0.36) K/mm3 Eos # (Auto) (0.04-0.36) K/mm3 Baso # (Auto) (0.01-0.08) K/mm3 Manual Slide Review Sodium (136-145) mEq/L Potassium (3.5-5.1) mEq/L Chloride (98-107) mEq/L Carbon Dioxide (21-32) mEq/L Anion Gap (5-15) BUN (7-18) mg/dL Creatinine (0.55-1.02) mg/dL Est Cr Clr Drug Dosing mL/min Estimated GFR (MDRD) (>60) mL/min BUN/Creatinine Ratio (14-18) Glucose (83-115) mg/dL POC Glucose 172 H 174 H (83-110) mg/dL Calcium (8.5-10.1) mg/dL Med Orders - Current: Current Medications Discontinued Medications Hydrocodone Bitart/Acetaminophen (Sebring 325-5 Mg) 1 - 2 tab PO Q4H PRN PRN Reason: Pain Last Admin: 11/18/16 08:19 Dose: 2 tab Aspirin (Ecotrin) 325 mg PO BID [facility] Last Admin: 11/18/16 08:19 Dose: 325 mg Bisacodyl (Dulcolax) 5 mg PO DAILY PRN PRN Reason: Constipation Bisacodyl (Dulcolax) 10 mg RECTAL ONETIME ONE Stop: 11/18/16 12:06 Last Admin: 11/18/16 12:09 Dose: 10 mg Bupivacaine HCl (Marcaine 0.25%) Confirm Administered Dose 30 ml .ROUTE .STK- MED ONE Stop: 11/15/16 07:15 Last Admin: 11/15/16 10:36 Dose: 30 ml Cefazolin Sodium (Ancef) Confirm Administered Dose 2 gm .ROUTE .STK-MED ONE Stop: 11/15/16 07:14 Last Admin: 11/15/16 10:30 Dose: 2 gm Cefazolin Sodium (Ancef) Confirm Administered Dose 2 gm .ROUTE .STK-MED ONE Stop: 11/15/16 09:03 Morphine Sulfate 8 mg/Epinephrine HCl 0.3 mg/Cefuroxime Sodium 750 mg/Ketorolac Tromethamine 30 mg/Sodium Chloride 27.9 ml 0 mg .XX ONETIME ONE Stop: 11/15/16 07:31 Last Admin: 11/15/16 10:35 Dose: 788.3 mg Diphenhydramine HCl (Benadryl) 25 mg IVPUSH Q6H PRN PRN Reason: Pruritis Stop: 11/15/16 18:00 Docusate Sodium (Colace) 100 mg PO BID [facility] Last Admin: 11/18/16 08:18 Dose: 100 mg Ephedrine Sulfate (Ephedrine Sulfate) Confirm Administered Dose 50 mg .ROUTE .STK-MED ONE Stop: 11/15/16 10:16 Famotidine (Pepcid) 20 mg PO Q12H [facility] Last Admin: 11/15/16 20:55 Dose: 20 mg Famotidine (Pepcid) 20 mg PO DAILY [facility] Last Admin: 11/18/16 08:19 Dose: 20 mg Fentanyl (Sublimaze) Confirm Administered Dose 100 mcg .ROUTE .STK-MED ONE Stop: 11/15/16 08:59 Hydrochlorothiazide (Hydrochlorothiazide) 25 mg PO DAILY [facility] Last Admin: 11/18/16 08:18 Dose: 25 mg Lactated Ringer's (Ringers, Lactated) 1,000 mls @ 125 mls/hr IV ASDIRECTED [facility] Stop: 11/15/16 23:00 Last Admin: 11/15/16 07:30 Dose: 125 mls/hr Cefazolin Sodium/Dextrose 2 gm (/ Premix) 50 mls @ 100 mls/hr IV Q8H [facility] Stop: 11/16/16 08:29 Last Admin: 11/16/16 10:40 Dose: 100 mls/hr Lactated Ringer's (Ringers, Lactated) Confirm Administered Dose 1,000 mls @ as directed .ROUTE .STK-MED ONE Stop: 11/15/16 11:01 Insulin Aspart (Novolog) 0 unit SUBCUT QIDACANDBED [facility] PRN Reason: Protocol Last Admin: 11/18/16 11:07 Dose: 1 units Iodine (Iodine 2% Mild Tincture) Confirm Administered Dose 30 ml .ROUTE .STK- MED ONE Stop: 11/15/16 07:15 Last Admin: 11/15/16 10:28 Dose: 18 ml Levothyroxine Sodium (Levothyroxine) 75 mcg PO ACBREAKFAST [facility] Last Admin: 11/18/16 06:11 Dose: 75 mcg Lidocaine/Sodium Bicarbonate (Buffered Lidocaine 1% In Ns 8.4%) 0.25 ml .XX ONETIME PRN PRN Reason: Prior to IV Start Stop: 11/15/16 18:00 Last Admin: 11/15/16 07:30 Dose: 0.25 ml Lisinopril (Prinivil) 5 mg PO DAILY [facility] Last Admin: 11/18/16 08:19 Dose: 5 mg Magnesium Hydroxide (Milk Of Magnesia) 30 ml PO BID PRN PRN Reason: Constipation Last Admin: 11/17/16 05:08 Dose: 30 ml Meperidine HCl (Demerol) 12.5 mg IVPUSH ONETIME PRN PRN Reason: Shivering Stop: 11/15/16 18:00 Metformin HCl (Glucophage) 1,000 mg PO BIDMEALS [facility] Last Admin: 11/18/16 06:11 Dose: 1,000 mg Morphine Sulfate (Duramorph Pf) Confirm Administered Dose 10 mg .ROUTE .STK-MED ONE Stop: 11/15/16 08:59 Morphine Sulfate (Morphine) 2 mg IVPUSH Q2H PRN PRN Reason: Breakthrough Pain Last Admin: 11/17/16 05:08 Dose: 2 mg Multivitamins (Thera) 1 each PO WITHBREAKFAST [facility] Last Admin: 11/18/16 06:11 Dose: 1 each Naloxone HCl (Narcan) 0.1 mg IVPUSH Q5M PRN PRN Reason: Oversedation Ondansetron HCl (Zofran) 4 mg IVPUSH Q6H PRN PRN Reason: Nausea/Vomiting Last Admin: 11/15/16 16:55 Dose: 4 mg Ondansetron HCl (Zofran) 4 mg IVPUSH ONETIME PRN PRN Reason: Nausea/Vomiting Stop: 11/15/16 18:00 Last Admin: 11/15/16 11:36 Dose: 4 mg Phenylephrine HCl (Enrike-Synephrine) Confirm Administered Dose 10 mg .ROUTE .STK- MED ONE Stop: 11/15/16 09:51 Pneumococcal 13-Valent Conj Vacc (Prevnar 13) 0.5 ml IM .ONCE ONE Stop: 11/18/16 10:46 Last Admin: 11/18/16 10:40 Dose: 0.5 ml Propofol (Diprivan 20 Ml) Confirm Administered Dose 600 mg .ROUTE .STK-MED ONE Stop: 11/15/16 08:59 Senna (Senna) 8.6 mg PO BID PRN PRN Reason: Constipation Last Admin: 11/18/16 08:18 Dose: 8.6 mg Simvastatin (Zocor) 20 mg PO BEDTIME [facility] Last Admin: 11/17/16 21:15 Dose: 20 mg Sodium Chloride (Saline Flush) 10 ml FLUSH ASDIRECTED PRN PRN Reason: Keep Vein Open Stop: 11/15/16 18:00 Tranexamic Acid (Cyklokapron) Confirm Administered Dose 1,000 mg .ROUTE .STK- MED ONE Stop: 11/15/16 07:14 Last Admin: 11/15/16 10:45 Dose: 1,000 mg *Q Meaningful Use (DIS) - VTE *Q VTE Criteria *Q: - Stroke *Q Stroke Criteria *Q: - AMI *Q AMI Criteria *Q:
--- NOTE | 2016-11-23 17:30 | OR ---
DATE OF OPERATION: 11/15/2016 SURGEON: Irwin Beavers MD OPERATION PERFORMED: Left total hip arthroplasty. PREOPERATIVE DIAGNOSIS: Left hip osteoarthrosis. POSTOPERATIVE DIAGNOSIS: Left hip osteoarthrosis. ANESTHESIA: Anesthesia Technique: Local MAC with spinal. ANESTHESIA PROVIDER: Dr. Dejan Monroy. ASSISTANTS: 1. Khushboo Borges PA-C. 2. Alecia Galeana LPN. ESTIMATED BLOOD LOSS: 200 mL. COMPLICATIONS: None. CONDITION: Stable. IMPLANTS: 1. Juli size 52 mm Tritanium solid acetabular cup. 2. [place] size 36 mm MDM cup. There is 38 mm MDM components and shell and 22.2 +3 mm ceramic Biolox head. 3. [place] Accolade 2, size 2 stem. DESCRIPTION OF PROCEDURE: The patient was identified in the preop holding area. Proper site was marked and identified by the surgeon. The patient was taken back to the OR where after adequate anesthesia, the patient was placed in the right lateral decubitus position. Bony prominences were well padded. Axillary roll was placed and all pegs were placed and well padded. The patient's gluteal fold was parallel to the floor. At this time, the left hip was then sterilely prepped and draped in the usual sterile fashion. OR time-out was performed. The patient received 2 grams of IV Ancef. Standard posterior incision was made in line with the gluteal fibers. IT band and gluteal fascia were then incised along the incisional length. Charnley retractor was then placed. The patient then had the piriformis tendon identified and takedown of the short external rotators and piriformis tendon. It was done all the way down to the lesser trochanter. At this time, hip was dislocated. The patient was noted to have a severely malformed femoral head as well as significant lateral acetabular and superior acetabular wear. At this time, neck cut was then completed. Anterior-posterior acetabular retractors were then placed. A pulvinar and remaining labrum were removed. At this time starting with a 44 reamer, I was able to ream medially and then ream up to a size 52 mm cup. The trial was found to have adequate fixation. At this time, a 52 mm solid [place] Tritanium acetabular cup was impacted in place and roughly 45 degrees of abduction and 10 degrees of anteversion. At this time, the 38 mm MDM liner was impacted into place. Attention was turned to the femur. Femoral elevator was then placed. Box chisel was used out laterally along with starter awl down the canal. Starting with the 0 broach, I was able to broach up to a size 2 which was found to be rotationally and vertically stable. At this time, 127-degree neck angle was chosen with MDM components and this was reduced with +0. It was found to have just a minor amount of leg length discrepancy. At this time, we trialed the +3 and was found to have adequate scientology of leg lengths as well as stable throughout range of motion. Hip was then dislocated. Size 2 Accolade stem was then impacted into place with 127-degree neck angle. The MDM components were constructed on the back table and these were then impacted onto the stem. Hip was then relocated. One liter of dilute Betadine solution was irrigated through the hip along with 3 L of pulse lavage irrigation with Ancef. Periarticular injection was then completed. Short external rotators and capsule were repaired using two #5 Ethibond sutures. Vancomycin powder as well as topical tranexamic acid was placed deep. A #2 barbed suture was used for closure of the IT band and gluteal fascia. A 2-0 Vicryl was used for subcutaneous tissue and the Prineo was used for the skin. The patient tolerated the procedure well and sent to PACU in stable condition. JOSE /[id number]
== END 2016-11-18 12:56 | DRG 470 ==
LOC: JD.MS 06:42
PROVIDERS: ADMIT Orthopaedic Surgery; ATTEND Orthopaedic Surgery
PROC: 0SRB0JA Replacement of Left Hip Joint with Synthetic Substitute, Uncemented, Open Approach (ICD-10-PCS; principal; 2016-11-15)
PROC: 3E0234Z Introduction of Serum, Toxoid and Vaccine into Muscle, Percutaneous Approach (ICD-10-PCS; 2016-11-18)
DX: M16.12 Unilateral primary osteoarthritis, left hip (principal); E11.22 Type 2 diabetes mellitus with diabetic chronic kidney disease; I12.9 Hypertensive chronic kidney disease with stage 1 through stage 4 chronic kidney disease, or unspecified chronic kidney disease; N18.3 Chronic kidney disease, stage 3 (moderate); E78.5 Hyperlipidemia, unspecified; E03.9 Hypothyroidism, unspecified; D50.9 Iron deficiency anemia, unspecified; K21.9 Gastro-esophageal reflux disease without esophagitis; Z79.84 Long term (current) use of oral hypoglycemic drugs; Z79.899 Other long term (current) drug therapy; Z23 Encounter for immunization
CPT/HCPCS: 01214; 36415; 73501-26-LT; 73501-LT; 80048; 80053; 82962; 85025; 86850; 86900; 86901; 87641; 90670; 94762; 97110-GP; 97116-GP; 97162-GP; 97166-GO; 97530-GO; 97535-GO; A9270-GY; C1776; G0009; J0171; J0690; J0697; J1815-GY; J1885; J2270; J2370; J2405; J2704; J3010; J3490; J7120